=== PATIENT | male | born 1945 | race Caucasian/White ===

== ENCOUNTER 2018-10-25 19:35 | Inpatient (IN) | payer MEDICARE, BC ==
[~2018-10-25 19:35] MED LIST: ISOVUE-370 76%-LOCM 1 ML ONE
[2018-10-25 20:04] LABS: #Lymphocytes 1.2 thou/uL (1.20-3.40); #Monocytes 1.6 thou/uL (0.11-0.59); #Neutrophils 14.8 thou/uL (1.40-6.50); %Basophils 0.2 % (0.0-1.0); %Eosinophils 5.5 % (0.0-10.0); %Lymphocytes 6.3 % (21.0-51.0); %Monocytes 8.6 % (0.0-10.0); %Neutrophils 79.4 % (42.0-75.0); Hemoglobin 13.8 g/dL (14.0-18.0); Mean Corpuscular HGB CONC 32.6 g/dL (32.0-36.0); Mean Corpuscular Hemoglobin 29.2 pg (27.0-31.0); Mean Corpuscular Volume 89.5 fL (78.0-98.0); Platelet Count 235 thou/uL (130-400); RBC Distribution Width 11.8 % (11.5-14.5); Red Blood Cell (RBC) Count 4.71 mill/uL (4.70-6.10); White Blood Cell (WBC) Count 18.6 thou/uL (4.8-10.8)
--- NOTE | 2018-10-25 20:13 | RAD ---
AP VIEW CHEST: 10/25/18 HISTORY: Dyspnea. AP view chest is obtained on 10/25/18. There is elevation of the right hemidiaphragm. There is an ill-defined upper right hilar mass with distention into the right upper lobe. This may re present a right upper lobe malignancy. Correlation with CT chest would be of use. IMPRESSION: Volume loss in the right mid lung with spiculated right upper lobe mass. Malignancy cannot be exclud ed. POS: [facility]
[2018-10-25 20:28] LABS: ALT (SGPT) 36 U/L (8-55); AST (SGOT) 35 U/L (5-34); Albumin 4.2 g/dL (3.4-4.8); Alkaline Phosphatase 125 U/L (40-150); Anion Gap 15 mmol/L (10-20); BUN (Urea Nitrogen) 17 mg/dL (8.4-25.7); Bilirubin, Total 0.5 mg/dL (0.2-1.2); CK (CPK) 58 U/L (30-200); Calc. Creatinine Clearance 0 mL/min (70-130); Calcium 10.2 mg/dL (7.8-10.44); Carbon Dioxide 26 mmol/L (23-31); Chloride 100 mmol/L (98-107); Estimated GFR-MDRD 69; Globulin 3.5 g/dL (2.4-3.5); Glucose 117 mg/dL (83-110); Potassium 4.2 mmol/L (3.5-5.1); Protein, Total 7.7 g/dL (5.8-8.1); Sodium 137 mmol/L (136-145)
[2018-10-25] MEDS ORDERED: Sodium Chloride 0.9% 0 ML ONE (20:40)
[2018-10-25] MEDS ORDERED: cefTRIAXone\\ROCEPHIN 1 GM VIAL ONE (20:40)
[2018-10-25] MEDS ORDERED: Azithromycin 500 MG VIAL ONE (21:28)
[2018-10-25] MEDS ORDERED: Sodium Chloride 0.9% 100 ML ONE (21:28)
--- NOTE | 2018-10-25 22:24 | CT ---
CONTRAST ENHANCED CTA CHEST: 10/25/18 HISTORY: Shortness of breath for three weeks. Contrast enhanced CTA chest performed. 2D and 3D reconstructed images performed on an independent 3D workstation. Coronary artery calcifications seen. There is a 6.2 x 3.9 cm right upper lobe soft tissue mass abutting and compressing the superior vena cava. This may represent a right upper lobe malignancy versus area of consolidation in the right upp er lobe. There may also be some associated areas of right upper lobe pneumonia lateral to this mass. There is some mild paratracheal and right hilar lymphadenopathy seen. Areas of patchy air space opac ity also seen in the right middle lobe and right lower lobe. A small right sided pleural effusion is seen. There is also a spiculated small mass in the left upper lobe, axial image #51. Diameter measuri ng 8.5 mm. The inferior aspect of the right hepatic lobe contains an ill-defined hepatic parenchymal mass. Diame ter measuring approximately 3 cm unchanged since the previous CT of which notes this lesion on previo us CT from [facility] from three days earlier. IMPRESSION: Right upper lobe mass with paratracheal lymphadenopathy and right hilar lymphadenopathy. POS: [facility]
[2018-10-25] MEDS ORDERED: Morphine 4 MG/ML VIAL ONE (23:19)
[2018-10-25] MEDS ORDERED: Ondansetron PF 4 MG/2 ML Vial ONE (23:20)
[2018-10-25] MEDS ORDERED: Sodium Chloride 0.9% 1,000 ML IV SCH (23:45)
[2018-10-26] MEDS: Acetaminophen 325 MG TAB PO PRN (01:13)
--- NOTE | 2018-10-26 01:20 | HP ---
CHIEF COMPLAINT: Back pain. HISTORY OF PRESENT ILLNESS: The patient is a 72-year-old male with a 48 pack-year history of smoking, who reports that about 6 weeks ago, he started having some low back pain. The pain has progressed, he subsequently developed some constipation and some pelvic discomfort. He tried to treat that, that subsequently resolved and now he is actually having more loose stools. He lost his appetite and started having some coughing about a week ago. Cough started being productive of sputum that became pink and frothy. Also then developed some pain in the epigastric area. He went to [facility] and had x-rays of the abdomen and pelvis. At that time, they are thinking he may have had some diverticulitis, but they saw a calcified spot on his liver. He subsequently did follow up with Dr. Almodovar who is his PCP who then sent him for a CT scan of the abdomen and pelvis at the [facility] on . He had an abnormality noted on his liver and his lung, although he was not given any more detail than that at that time. He was told that he might want to consider coming here to the emergency department to be evaluated further. However, the patient felt like he could wait until followup. However, his pain has continued to increase and ultimately he had to present to the emergency department for some pain control of his low back pain. This pain has been somewhat positional. He indicates area is in the sacral area. He also reports some in the left posterior rib cage area. REVIEW OF SYSTEMS: The patient's voice has become significantly weaker. He has had 8-9 pounds weight loss over the past week. He has had no fevers or chills. He continues to have some loose stools. He reports some wheezing and shortness of breath over the last 4-5 days and as mentioned above, he has poor appetite. All other systems were reviewed and all pertinent positives and negatives noted in the history of present illness. PAST MEDICAL HISTORY: Notable for hypertension, peripheral vascular disease, coronary artery disease, hyperlipidemia. PAST SURGICAL HISTORY: Appendectomy, coronary stent x1, peripheral stents x3, one in the right leg, two in the left. FAMILY HISTORY: Father of lung cancer at the age of 63. His mother at 81 with COPD. SOCIAL HISTORY: The patient drinks about 3 beers per day. He smoked a pack a day for 48 years and quit about 10 years ago. He is . He is full code and his is his surrogate decision maker. ALLERGIES: NONE. CURRENT MEDICATIONS: 1. Crestor 20 mg daily. 2. Sertraline 150 mg daily. 3. Lisinopril 10 mg daily. 4. Atenolol 25 mg daily. 5. Aspirin 81 mg daily. 6. Vascepa 1 g b.i.d. 7. Fenofibrate 160 mg p.o. daily. PHYSICAL EXAMINATION: VITAL SIGNS: Blood pressure 160/86, pulse 73, respirations 20, temp 98.2, O2 saturations 96% on room air, although when I am in the room with the patient got him up out of the chair, his sats were down to 88%. GENERAL APPEARANCE: Age-appropriate male, he is in no distress. He is awake, alert, oriented, pleasant, and cooperative. HEENT: PERRL, no OP lesions. NECK: Supple and symmetric with no lymphadenopathy, JVD, or bruits. HEART: Regular rate and rhythm without murmurs, gallops, or rubs. LUNGS: Clear. He does have decreased breath sounds at the right base. He has no wheezes, rales presently. ABDOMEN: Soft, nontender, and nondistended. Positive bowel sounds. No masses. No organomegaly. EXTREMITIES: No cyanosis, clubbing, or edema. SKIN: Warm and dry. MUSCULOSKELETAL: Reveals no significant tenderness over the spine to palpation or percussion. He has slight tenderness in the left posterior ribcage area with no anatomic abnormalities noted. LABORATORY DATA: White count 18.6, hemoglobin 13.8, platelets are 225. D-dimer of greater than 20. Chemistries: Sodium 137, potassium 4.2, chloride 100, CO2 of 26, BUN 17, creatinine 1.06, glucose 117, calcium 10.2, AST 35, ALT 36. Troponin 0.013. Albumin is 4.2. IMAGING: Chest x-ray shows volume loss of the right mid lung with spiculated right upper lobe mass. CT of the chest shows a 6.2 x 3.9 cm right upper lobe soft tissue mass abutting and compressing the superior vena cava. Some area of upper lobe pneumonia lateral to the mass. Mild peritracheal and right hilar lymphadenopathy, small right-sided pleural effusion. Small spiculated mass in the left upper lobe and the inferior aspect of the right hepatic lobe contains an ill-defined hepatic parenchymal mass measuring 3 cm and unchanged from the previous CT done at the [facility] 3 days ago. IMPRESSION AND PLAN: Neoplasm of the right lung, highly suspicious for lung cancer with potential lymph node spread and possibly a metastatic mass in the left lung and liver. The patient also has pain in his sacrum, lumbar spine and left posterior rib cage areas. We will consult pulmonology for possible bronchoscopic biopsy. We will consult Oncology. We will obtain some x-rays of the sacrum and coccyx as well as a CT of the lumbar spine to evaluate for possible metastases. 1. Postobstructive pneumonia. Continue with the Rocephin and azithromycin started in the emergency department, p.r.n. nebs and oxygen. 2. Low back pain. Again, CT of the lumbar spine and images of the sacrum, to look for possible metastases. 3. History of coronary artery disease. Continue with the beta maribell and aspirin. 4. Hypertension, continue lisinopril. 5. Hyperlipidemia, continue Crestor. 6. Peripheral vascular disease, stable. 7. We will hold off on sequential compression devices for deep venous thrombosis prophylaxis given his peripheral vascular disease and we will hold off on anticoagulation in anticipation of potential endoscopy. Job ID: [id number]
[2018-10-26] MEDS: Morphine 4 MG/ML VIAL SLOW IVP PRN ×4 (04:40→20:08)
[2018-10-26 06:20] LABS: #Eosinphils 1.1 thou/uL (0.0-0.7); #Monocytes 1.5 thou/uL (0.11-0.59); #Neutrophils 11.4 thou/uL (1.40-6.50); %Basophils 0.3 % (0.0-1.0); %Eosinophils 7.2 % (0.0-10.0); %Lymphocytes 6.8 % (21.0-51.0); %Monocytes 9.9 % (0.0-10.0); %Neutrophils 75.9 % (42.0-75.0); Hemoglobin 12.2 g/dL (14.0-18.0); Mean Corpuscular HGB CONC 32.2 g/dL (32.0-36.0); Mean Corpuscular Hemoglobin 29.1 pg (27.0-31.0); Mean Corpuscular Volume 90.5 fL (78.0-98.0); Platelet Count 205 thou/uL (130-400); RBC Distribution Width 11.8 % (11.5-14.5); Red Blood Cell (RBC) Count 4.17 mill/uL (4.70-6.10)
[2018-10-26 06:43] LABS: Anion Gap 16 mmol/L (10-20); BUN (Urea Nitrogen) 18 mg/dL (8.4-25.7); Calc. Creatinine Clearance 95 mL/min (70-130); Carbon Dioxide 21 mmol/L (23-31); Chloride 104 mmol/L (98-107); Estimated GFR-MDRD 87; Glucose 94 mg/dL (83-110); Potassium 3.8 mmol/L (3.5-5.1); Sodium 137 mmol/L (136-145)
[2018-10-26] MEDS: Atenolol 25 MG TAB PO SCH (07:39)
[2018-10-26] MEDS: Fenofibrate Nanocrystallized 145 MG TAB PO SCH (07:39)
[2018-10-26] MEDS: Lisinopril 10 MG TAB PO SCH (07:40)
[2018-10-26] MEDS: Aspirin 81 mg Enteric Coated Tablet PO SCH (07:40)
[2018-10-26] MEDS ORDERED: Artificial Tears 18 DROP/0.9 ML EA EYE PRN (08:28)
[2018-10-26] MEDS ORDERED: Calcium Carbonate 500 MG ChewTAB PO PRN (08:28)
[2018-10-26] MEDS ORDERED: Ondansetron ODT 4 MG TAB SL PRN (08:28)
[2018-10-26] MEDS ORDERED: Loperamide HCl 2 MG CAP PO PRN (08:28)
[2018-10-26] MEDS ORDERED: Loratadine 10 MG TAB PO PRN (08:28)
[2018-10-26] MEDS ORDERED: Sodium Chloride 0.65% Nasal 44 ML BOT EA NARE PRN (08:28)
[2018-10-26] MEDS ORDERED: Cepastat Lozenges 1 LOZ PO PRN (08:28)
[2018-10-26] MEDS ORDERED: Senokot S 8.6-50 MG TAB PO PRN (08:28)
[2018-10-26] MEDS ORDERED: Ondansetron PF 4 MG/2 ML Vial IVP PRN (08:28)
[2018-10-26] MEDS ORDERED: Diabetic Tussin 200 MG/10 ML UDCUP PO PRN (08:28)
[2018-10-26] MEDS ORDERED: Nitroglycerin 0.4 MG TAB (25 Tab Bottle) SL PRN (08:28)
[2018-10-26] MEDS ORDERED: Eucerin (Mineral Oil/Petrolatum,White) 30 gm Jar TOP PRN (08:28)
[2018-10-26] MEDS ORDERED: Prevnar 13-Val Conj/PF 0.5 ML SYRINGE IM ONE (09:00)
--- NOTE | 2018-10-26 10:45 | PDOC.PN ---
- Subjective Encounter Start Date: 10/26/18 Encounter Start Time: 08:10 -: old records requested/rev Patient seen and examined. No new complaints. No overnight events has cough with sputum, has back pain - Objective Resuscitation Status - Order Detail: 10/25/18 23:44 Resuscitation Status Routine Resuscitation Status: FULL: Full Resuscitation MAR Reviewed: Yes Vital Signs & Weight: Vital Signs (12 hours) Temp Pulse Resp BP BP Pulse Ox 10/26/18 08:00 92 L 10/26/18 07:49 98.2 F 86 24 H 188/98 H 92 L 10/26/18 07:39 78 10/26/18 04:24 97.9 F 78 18 174/92 H 94 L 10/26/18 00:31 97.7 F 75 20 132/77 95 Weight Weight 189 lb 9.561 oz I&O: 10/25/18 10/26/18 10/27/18 06:59 06:59 06:59 Intake Total 1 Balance 1 Result Diagrams: 10/26/18 05:48 10/26/18 05:48 Radiology Reviewed by me: Yes Phys Exam - Physical Examination Constitutional: NAD HEENT: PERRLA, moist MMs, sclera anicteric Neck: no JVD, supple Respiratory: no rales few scattered rhonchi+ Cardiovascular: RRR, no significant murmur, no rub Gastrointestinal: soft, non-tender, no distention, positive bowel sounds Musculoskeletal: no edema, pulses present Neurological: non-focal, normal sensation, moves all 4 limbs Lymphatic: no nodes Psychiatric: normal affect, A&O x 3 Skin: no rash, normal turgor Dx/Plan (1) Mass of upper lobe of right lung Code(s): R91.8 - OTHER NONSPECIFIC ABNORMAL FINDING OF LUNG FIELD Status: Acute (2) Postobstructive pneumonia Code(s): J18.9 - PNEUMONIA, UNSPECIFIED ORGANISM Status: Acute (3) Anxiety and depression Code(s): F41.9 - ANXIETY DISORDER, UNSPECIFIED; F32.9 - MAJOR DEPRESSIVE DISORDER, SINGLE EPISODE, UNSPECIFIED Status: Chronic (4) CAD (coronary artery disease) Code(s): I25.10 - ATHSCL HEART DISEASE OF [place] CORONARY ARTERY W/O ANG PCTRS Status: Chronic (5) Dyslipidemia Code(s): E78.5 - HYPERLIPIDEMIA, UNSPECIFIED Status: Chronic (6) Hypertension Code(s): I10 - ESSENTIAL (PRIMARY) HYPERTENSION Status: Chronic (7) Low back pain Code(s): M54.5 - LOW BACK PAIN Status: Chronic (8) PAD (peripheral artery disease) Code(s): I73.9 - PERIPHERAL VASCULAR DISEASE, UNSPECIFIED Status: Chronic - Plan cont current plan of care, plan discussed w/ family, continue antibiotics * medication reviewed as below * symptomatic treatment * pulmonary consulted for tissue diagnosis * oncology consulted * will get CT abdomen and pelvis * continue IV rocephin and azithromycin. Review of Systems - Review of Systems Eyes: negative: Pain, Vision Change, Conjunctivae Inflammation, Eyelid Inflammation, Redness, Other ENT: negative: Ear Pain, Ear Discharge, Nose Pain, Nose Discharge, Nose Congestion, Mouth Pain, Mouth Swelling, Throat Pain, Throat Swelling, Other Respiratory: Cough, Sputum. negative: Dry, Shortness of Breath, Hemoptysis, SOB with Excertion, Pleuritic Pain, Wheezing Cardiovascular: negative: chest pain, palpitations, orthopnea, paroxysmal nocturnal dyspnea, edema, light headedness, other Gastrointestinal: negative: Nausea, Vomiting, Abdominal Pain, Diarrhea, Constipation, Melena, Hematochezia, Other Genitourinary: negative: Dysuria, Frequency, Incontinence, Hematuria, Retention , Other Musculoskeletal: Back Pain. negative: Neck Pain, Shoulder Pain, Arm Pain, Hand Pain, Leg Pain, Foot Pain, Other - Medications/Allergies Allergies/Adverse Reactions: Allergies Allergy/AdvReac Type Severity Reaction Status Date / Time No Known Allergies Allergy Unverified 10/26/18 00:42 Medications: Current Medications Acetaminophen (Tylenol) 650 mg PO Q4H PRN PRN Reason: Headache/Fever/Mild Pain (1-3) Last Admin: 10/26/18 01:13 Dose: 650 mg Hydrocodone Bitart/Acetaminophen ([place] 5/325) 1 tab PO Q4H PRN PRN Reason: Moderate Pain (4-6) Albuterol/Ipratropium (Duoneb) 3 ml NEB H4BY-AT PRN PRN Reason: SOB &/or Wheezing Artificial Tears (Tears Naturale) 2 drop EA EYE PRN PRN PRN Reason: Dry Eyes Aspirin (Ecotrin) 81 mg PO DAILY PRO Last Admin: 10/26/18 07:40 Dose: 81 mg Atenolol (Tenormin) 25 mg PO DAILY REPLACED BY [facility] Last Admin: 10/26/18 07:39 Dose: 25 mg Calcium Carbonate (Tums) 1,000 mg PO Q4H PRN PRN Reason: Heartburn or Indigestion Fenofibrate (Tricor) 145 mg PO DAILY REPLACED BY [facility] Last Admin: 10/26/18 07:39 Dose: 145 mg Guaifenesin (Robitussin Sf) 200 mg PO Q4H PRN PRN Reason: Cough Hydralazine HCl (Apresoline) 10 mg SLOW IVP Q4H PRN PRN Reason: SBP > 180 and HR < 70 Sodium Chloride (Normal Saline 0.9%) 1,000 mls @ 75 mls/hr IV .[id number] REPLACED BY [facility] Last Admin: 10/26/18 00:56 Dose: 1,000 mls Azithromycin 500 mg/ Sodium (Chloride) 250 mls @ 250 mls/hr IVPB Q24HR REPLACED BY [facility] Ceftriaxone Sodium 1 gm/ (Sodium Chloride) 100 mls @ 200 mls/hr IVPB Q24HR REPLACED BY [facility] Lisinopril (Zestril) 10 mg PO DAILY REPLACED BY [facility] Last Admin: 10/26/18 07:40 Dose: 10 mg Loperamide HCl (Imodium) 2 mg PO PRN PRN PRN Reason: Diarrhea/Loose Stools Loratadine (Claritin) 10 mg PO DAILYPRN PRN PRN Reason: Sinus Symptoms Mineral Oil/White Petrolatum (Eucerin Cream) 0 gm TOP BIDPRN PRN PRN Reason: Dry Skin Morphine Sulfate (Morphine) 2 mg SLOW IVP Q4H PRN PRN Reason: Moderate to Severe Pain (7-10) Last Admin: 10/26/18 08:44 Dose: 2 mg Nitroglycerin (Nitrostat) 0.4 mg SL Q5MIN PRN PRN Reason: Chest Pain Ondansetron HCl (Zofran Odt) 4 mg SL Q6H PRN PRN Reason: Nausea/Vomiting Ondansetron HCl (Zofran) 4 mg IVP Q6H PRN PRN Reason: Nausea/Vomiting Rosuvastatin Calcium (Crestor) 20 mg PO HS REPLACED BY [facility] Senna/Docusate Sodium (Senokot S) 2 tab PO BID PRN PRN Reason: Constipation Sertraline HCl (Zoloft) 150 mg PO DAILY REPLACED BY [facility] Last Admin: 10/26/18 07:39 Dose: 150 mg Sodium Chloride ([place] Nasal [place] 0.65%) 0 ml EA NARE QIDPRN PRN PRN Reason: Nasal Congestion Throat Lozenges (Cepastat Lozenges) 1 [place] PO Q2H PRN PRN Reason: Sore Throat Zolpidem Tartrate (Ambien) 5 mg PO HSPRN PRN PRN Reason: Insomnia
--- NOTE | 2018-10-26 12:01 | RAD ---
Sacrum/coccyx 2 views HISTORY: Sacral pain. FINDINGS: Sacral alae are intact. Sacrum is partially obscured by contrast material within the urinar y bladder. No acute osseous abnormalities are demonstrated. The sacrum is also seen on CT exam from the same date and shows no significant abnormalities.
--- NOTE | 2018-10-26 12:02 | CT ---
CT of the abdomen and pelvis with IV contrast INDICATION: History of lung neoplasm with low back pain rule out metastatic disease COMPARISON: CTA of the thorax dated October 25, [address] of the abdomen and pelvis dated October 22, 2018 FINDINGS: ABDOMEN: Lung bases: There is a small right pleural effusion again noted. There is mild right basilar atelecta sis. There are scattered pulmonary nodules within both lung bases suspicious for pulmonary metastatic disease. Liver: The hypodense mass within the right hepatic lobe is unchanged measuring 4.0 x 4.5 cm. No addit ional focal hepatic lesion is evident. Pancreas: Normal. Adrenal glands: Normal. Spleen: Normal. Kidneys: There is a 1.3 cm hypodense enhancing mass involving the superior pole of the left kidney on image 30 of series 2 and image 111 of coronal series. Bilateral renal cysts. Retroperitoneum of the upper abdomen: No lymphadenopathy or free fluid is identified. Pelvis: Small and large bowel: There are scattered diverticula involving the colon without evidence of active diverticulitis. The appendix is not definitely demonstrated. Reproductive structures: Prostate appears within normal limits. Free fluid: No free fluid is evident. Lymphadenopathy: No lymphadenopathy is evident. Vascular structures: There is moderate vascular consultation involving the abdominal pelvic vasculatu re. There is an endograft stent within the right external iliac artery. Osseous structures: There is a inferior endplate Schmorl's node involving L4 which is stable. No dest ructive osteolytic or osteoblastic lesion is identified. IMPRESSION: 1. Findings highly suspicious for pulmonary and hepatic metastatic disease. 2. Hypodense enhancing mass involving the superior pole left kidney suspicious for renal cell maligna ncy. MRI examination with and without contrast is recommended for further characterization. 3. Stable right pleural effusion 4. Colonic diverticulosis
[2018-10-26] MEDS ORDERED: ISOVUE-370 76%-LOCM 1 ML ONE (15:00)
[2018-10-26] MEDS ORDERED: predniSONE 20 MG TAB PO SCH (16:30)
[2018-10-26] MEDS: Rosuvastatin 20 MG TAB PO SCH (20:08)
--- NOTE | 2018-10-26 20:48 | CON ---
DATE OF CONSULTATION: REASON FOR CONSULT: Lung mass. HISTORY OF PRESENT ILLNESS: Mr. Dennis is a pleasant 72-year-old gentleman with a 70 pack-year history of smoking, who presented to the emergency room with low back pain. He had been seen by his primary care last week for back pain and shortness of breath. A CT scan done at a physician's center showed abnormalities in his liver and lung. He was planning on having outpatient workup. His pain increased, so he presented to the emergency room for evaluation. He had a CT angiogram of his chest and thorax, which showed a 6.2 x 3.9 cm right upper lobe mass abutting the superior vena cava. There was a small spiculated mass in the left upper lobe. He had a small right pleural effusion. He had right hilar and peritracheal lymphadenopathy. He underwent an abdominal and pelvis CT, which showed a 4.0 x 4.5 hyperdense mass in the right hepatic lobe. A 1.3 cm hyperdense mass involving the superior pole of the left kidney. The patient states he has had a 10-pound weight loss over the last 10 days. His symptoms began 6 weeks ago with cough, pain, and lack of appetite. He does complain of hoarseness and he has had several episodes of hemoptysis. He states he has had both constipation and most recently diarrhea. PAST MEDICAL HISTORY: 1. Hypertension. 2. Peripheral vascular disease. 3. Coronary artery disease. 4. Hyperlipidemia. 5. COPD. PAST SURGICAL HISTORY: 1. Appendectomy. 2. Cardiac stent. 3. Peripheral stents. ALLERGIES: NO KNOWN DRUG ALLERGIES. HOME MEDICATIONS: 1. Crestor 20 mg daily. 2. Sertraline 150 mg daily. 3. Lisinopril 10 mg daily. 4. Atenolol 25 daily. 5. Aspirin 81 mg daily. 6. Vascepa 1 g b.i.d. 7. Fenofibrate 160 mg daily. FAMILY HISTORY: Father from small cell lung cancer. SOCIAL HISTORY: He is . Pack and a half for almost 50 years, quit 10 years ago. Drinks 3 or 4 beers daily. REVIEW OF SYSTEMS: A 10-point review of systems is negative except for noted in HPI. PHYSICAL EXAMINATION: VITAL SIGNS: Temperature 97.9, pulse is 74, respiratory rate 22, and blood pressure is 158/88. He is 94% on 2 L. GENERAL: This is a well-developed, well-nourished male, in no acute distress. HEENT: Normocephalic and atraumatic. Pupils are equal and reactive to light. NECK: Supple with no mass. CV: Regular rate and rhythm. LUNGS: Diminished with expiratory wheezing and rhonchi in his upper airway. ABDOMEN: Soft and nontender. Bowel sounds are positive. EXTREMITIES: No clubbing, cyanosis, or edema. SKIN: No rash. HEMATOLOGIC: No petechiae or purpura. NEUROLOGIC: Nonfocal. PSYCH: The patient is alert and oriented. PERTINENT LABS AND X-RAYS: Current WBCs are 15, hemoglobin 12.2, hematocrit 37.7, and platelet count 205,000. He has 76% neutrophils and 7% lymphocytes. Sodium is 137, potassium is 3.8, chloride is 104, CO2 is 21, BUN is 18, creatinine is 0.87 , calcium is 9, total bilirubin is 0.5, AST is 35, ALT is 36, and alkaline phosphatase is 125. Troponin is negative. Serum total protein 7.7, albumin 4.2, and globulin 3.5. Radiology per HPI. ASSESSMENT: 1. Right upper lobe mass with likely liver metastatic disease. 2. A 1.3 left kidney lesion. DISCUSSION: Dr. Tolentino has seen the patient and is planning a bronchoscopy with tissue biopsy tomorrow. Further recommendations will be based on those results. If he has a small cell lung cancer, he will likely have chemotherapy on this hospitalization. He will likely need a PET scan at some point to characterize this left kidney lesion. Thank you for the consult. We will follow his hospital course. Job ID: [id number] [facility]
--- NOTE | 2018-10-26 22:20 | CON ---
DATE OF CONSULTATION: 10/26/2018 SERVICE: Pulmonary Medicine. REASON FOR CONSULT: Lung mass. HISTORY OF PRESENT ILLNESS: The patient is a 72-year-old white male with a past medical history significant for nothing. He was in his usual state of health until about 10 days ago. He started having increasing cough, little bit of hemoptysis , weight loss, aversion for food. Ultimately, he presented to the emergency department, because of the hemoptysis and increasing difficulty with breathing. He was discovered to have a lung mass and mediastinal lymphadenopathy. He denies any current fevers or chills. He has been having some night sweats, but that has not changed over the last 20 years. PAST MEDICAL HISTORY: 1. Hypertension. 2. Peripheral vascular disease. 3. Dyslipidemia. 4. Coronary artery disease. 5. COPD, not currently on medication. PAST SURGICAL HISTORY: 1. Appendectomy. 2. Percutaneous coronary intervention with stent placement x1. 3. Peripheral stent x3. FAMILY HISTORY: Noncontributory. SOCIAL HISTORY: He drinks 3 beers on a daily basis. He quit smoking about 10 years ago, but prior to that, he had nearly a 50-pack year history of smoking. 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 ALLERGIES: NO KNOWN DRUG ALLERGIES. MEDICATIONS: List of his inpatient medications was reviewed. Multiple updates were made at this time including initiation of steroids, antibiotics and nebulized medications. REVIEW OF SYSTEMS: General, head, ears, eyes, nose, throat, cardiovascular, respiratory, GI, , musculoskeletal, neurologic, and skin is negative except as mentioned in the HPI. PHYSICAL EXAMINATION: VITAL SIGNS: Afebrile, pulse 74, blood pressure 158/88, respirations 22, saturation 94% on 2 L nasal cannula. GENERAL: The patient is awake and alert, in no apparent distress. LUNG: Reduced air entry with a prolonged expiratory phase and expiratory wheezing present. HEART: Normal rate regular. ABDOMEN: Soft, nontender, and nondistended. Bowel sounds are positive. MUSCULOSKELETAL: No cyanosis or clubbing. No pitting in the bilateral lower extremities. NEUROLOGIC: Grossly nonfocal. LABORATORY DATA: WBC 15.0, hemoglobin 12.2, platelets 205,000. D-dimer is greater than 20. Basic metabolic profile and liver function studies are unremarkable otherwise. Troponin is negative x1. IMAGIN. Sacrum and coccyx x-ray demonstrates no acute abnormalities. 2. His CT of the abdomen and pelvis demonstrates findings highly suspicious for pulmonary and hepatic metastatic processes. Hypodense enhancing mass involves the superior pole of the left kidney, suspicious for primary kidney lesion. Right pleural effusion is present. 3. His CTA of the chest demonstrates pulmonary mass, and mediastinal lymphadenopathy. ASSESSMENT: 1. Pulmonary mass. 2. Mediastinal lymphadenopathy. 3. Chronic obstructive pulmonary disease with acute exacerbation. 4. Obstructive sleep apnea, not able to tolerate CPAP therapy. DISCUSSION AND PLAN: I have talked about different sampling procedures that could be offered. Ultimately, he thought it would be reasonable to pursue a mediastinal lymph node biopsy, and right upper lobe biopsy, if necessary. I will set the procedure up for tomorrow morning. We will make him n.p.o. before midnight. Treatment for COPD exacerbation will be initiated by giving him steroids, antibiotics and nebulized medications. He has a known history of obstructive sleep apnea. He is going to discuss with his whether or not he wants to pursue additional investigation. 70 minutes have been devoted to this patient in various activities. I personally reviewed all imaging studies and laboratory data noted within this document. For fifty percent of this time, I was interacting with the patient at the bedside or coordinating care with the care team. For the remainder of the time I was immediately available to the patient in the hospital unit. Job ID: [id number] [id number]
[2018-10-26] MEDS: cefTRIAXone\\ROCEPHIN 1 GM in Sodium Chloride 0.9% 100 ML IVPB SCH (22:34)
[2018-10-26] MEDS: Azithromycin 500 MG in Sodium Chloride 0.9% 250 ML 250 ML IVPB SCH (23:32)
[2018-10-27] MEDS: Morphine 4 MG/ML VIAL SLOW IVP PRN ×4 (01:04→22:05)
[2018-10-27] MEDS: Atenolol 25 MG TAB PO SCH (06:11)
[2018-10-27] MEDS ORDERED: PROPOFOL 0 ML ONE (07:52)
[2018-10-27] MEDS ORDERED: Fentanyl 100 MCG/2 ML VIAL ONE (07:52)
[2018-10-27] MEDS ORDERED: Midazolam HCl 2 mg/2 ml Vial ONE (08:25)
[2018-10-27] MEDS ORDERED: Albuterol Sulfate HFA (OR ONLY) ONE (08:31)
[2018-10-27 08:45] LABS: #Eosinphils 0.1 thou/uL (0.0-0.7); #Lymphocytes 0.7 thou/uL (1.20-3.40); #Monocytes 1.1 thou/uL (0.11-0.59); #Neutrophils 13.5 thou/uL (1.40-6.50); %Eosinophils 0.3 % (0.0-10.0); %Lymphocytes 4.4 % (21.0-51.0); %Monocytes 7.4 % (0.0-10.0); %Neutrophils 87.9 % (42.0-75.0); Hemoglobin 12.1 g/dL (14.0-18.0); Mean Corpuscular HGB CONC 31.4 g/dL (32.0-36.0); Mean Corpuscular Hemoglobin 28.1 pg (27.0-31.0); Mean Corpuscular Volume 89.6 fL (78.0-98.0); Mean Platelet Volume 7.2 fL (7.4-10.4); Platelet Count 244 thou/uL (130-400); RBC Distribution Width 11.8 % (11.5-14.5); Red Blood Cell (RBC) Count 4.29 mill/uL (4.70-6.10); White Blood Cell (WBC) Count 15.4 thou/uL (4.8-10.8)
[2018-10-27] MEDS: Aspirin 81 mg Enteric Coated Tablet PO SCH (08:45)
[2018-10-27] MEDS ORDERED: EPINEPHrine 1 MG/10 ML Abboject SYRINGE ONE (08:51)
[2018-10-27 09:10] LABS: ALT (SGPT) 26 U/L (8-55); AST (SGOT) 24 U/L (5-34); Albumin 3.5 g/dL (3.4-4.8); Alkaline Phosphatase 106 U/L (40-150); Anion Gap 19 mmol/L (10-20); BUN (Urea Nitrogen) 20 mg/dL (8.4-25.7); Bilirubin, Total 0.3 mg/dL (0.2-1.2); Calc. Creatinine Clearance 96 mL/min (70-130); Calcium 8.9 mg/dL (7.8-10.44); Carbon Dioxide 19 mmol/L (23-31); Chloride 102 mmol/L (98-107); Estimated GFR-MDRD 89; Glucose 125 mg/dL (83-110); Protein, Total 6.5 g/dL (5.8-8.1); Sodium 136 mmol/L (136-145)
[2018-10-27 11:29] LABS: BF Color Colorless; Body Fluid Source Bronchial Washings; Clarity Hazy (Clear); Tube # EDTA
[2018-10-27 11:30] LABS: BF RBC Count - Manual 535 /cumm; BF WBC/Nonhematics Ct. - Manua 173 /cumm
[2018-10-27] MEDS: predniSONE 20 MG TAB PO SCH (12:15)
[2018-10-27] MEDS: Lisinopril 10 MG TAB PO SCH (12:16)
[2018-10-27] MEDS: Fenofibrate Nanocrystallized 145 MG TAB PO SCH (12:16)
[2018-10-27] MEDS: HYDROcodone/Acetaminophen 5/325 mg Tablet PO PRN ×2 (12:20→19:44)
[2018-10-27 13:11] LABS: BF Segmented Neutrophils 20 %; Cell Count Non Hematic 80 %
--- NOTE | 2018-10-27 13:33 | PDOC.PN ---
- Subjective Encounter Start Date: 10/27/18 Encounter Start Time: 09:00 Patient seen and examined. No new complaints. No overnight events - Objective Resuscitation Status - Order Detail: 10/25/18 23:44 Resuscitation Status Routine Resuscitation Status: FULL: Full Resuscitation MAR Reviewed: Yes Vital Signs & Weight: Vital Signs (12 hours) Temp Pulse Resp BP Pulse Ox 10/27/18 13:26 81 18 94 L 10/27/18 11:42 98.3 F 80 18 93 L 10/27/18 07:26 98.9 F 80 20 135/73 93 L 10/27/18 06:56 76 18 92 L 10/27/18 06:11 89 10/27/18 04:00 98.2 F 79 16 133/69 93 L 10/27/18 02:00 124/68 Weight Weight 189 lb 9.561 oz I&O: 10/26/18 10/27/18 10/28/18 06:59 06:59 06:59 Intake Total 1 690 Balance 1 690 Result Diagrams: 10/27/18 06:26 10/27/18 06:26 Phys Exam - Physical Examination Constitutional: NAD HEENT: PERRLA, moist MMs, sclera anicteric Neck: no JVD, supple Respiratory: no wheezing, no rales, no rhonchi Cardiovascular: RRR, no significant murmur, no rub Gastrointestinal: soft, non-tender, no distention, positive bowel sounds Musculoskeletal: no edema, pulses present Neurological: non-focal, normal sensation Lymphatic: no nodes Psychiatric: normal affect, A&O x 3 Skin: no rash, normal turgor Dx/Plan (1) Mass of upper lobe of right lung Code(s): R91.8 - OTHER NONSPECIFIC ABNORMAL FINDING OF LUNG FIELD Status: Acute (2) Postobstructive pneumonia Code(s): J18.9 - PNEUMONIA, UNSPECIFIED ORGANISM Status: Acute (3) Anxiety and depression Code(s): F41.9 - ANXIETY DISORDER, UNSPECIFIED; F32.9 - MAJOR DEPRESSIVE DISORDER, SINGLE EPISODE, UNSPECIFIED Status: Chronic (4) CAD (coronary artery disease) Code(s): I25.10 - ATHSCL HEART DISEASE OF [place] CORONARY ARTERY W/O ANG PCTRS Status: Chronic (5) Dyslipidemia Code(s): E78.5 - HYPERLIPIDEMIA, UNSPECIFIED Status: Chronic (6) Hypertension Code(s): I10 - ESSENTIAL (PRIMARY) HYPERTENSION Status: Chronic (7) Low back pain Code(s): M54.5 - LOW BACK PAIN Status: Chronic (8) PAD (peripheral artery disease) Code(s): I73.9 - PERIPHERAL VASCULAR DISEASE, UNSPECIFIED Status: Chronic - Plan cont current plan of care, continue antibiotics * today bronchoscopy * continue IV antibiotics * follow pathology * oncology and pulmonary recommendation appreciated * medication reviewed as below * symptomatic treatment. Review of Systems - Review of Systems ENT: negative: Ear Pain, Ear Discharge, Nose Pain, Nose Discharge, Nose Congestion, Mouth Pain, Mouth Swelling, Throat Pain, Throat Swelling, Other Respiratory: negative: Cough, Dry, Shortness of Breath, Hemoptysis, SOB with Excertion, Pleuritic Pain, Sputum, Wheezing Cardiovascular: negative: chest pain, palpitations, orthopnea, paroxysmal nocturnal dyspnea, edema, light headedness, other Gastrointestinal: negative: Nausea, Vomiting, Abdominal Pain, Diarrhea, Constipation, Melena, Hematochezia, Other Genitourinary: negative: Dysuria, Frequency, Incontinence, Hematuria, Retention , Other Musculoskeletal: negative: Neck Pain, Shoulder Pain, Arm Pain, Back Pain, Hand Pain, Leg Pain, Foot Pain, Other - Medications/Allergies Allergies/Adverse Reactions: Allergies Allergy/AdvReac Type Severity Reaction Status Date / Time No Known Allergies Allergy Unverified 10/26/18 00:42 Medications: Current Medications Acetaminophen (Tylenol) 650 mg PO Q4H PRN PRN Reason: Headache/Fever/Mild Pain (1-3) Last Admin: 10/26/18 01:13 Dose: 650 mg Hydrocodone Bitart/Acetaminophen ([place] 5/325) 1 tab PO Q4H PRN PRN Reason: Moderate Pain (4-6) Last Admin: 10/27/18 12:20 Dose: 1 tab Albuterol/Ipratropium (Duoneb) 3 ml NEB [id number] PRN PRN Reason: SOB &/or Wheezing Albuterol/Ipratropium (Duoneb) 3 ml NEB [id number] PRO Last Admin: 10/27/18 13:26 Dose: 3 ml Artificial Tears (Tears Naturale) 2 drop EA EYE PRN PRN PRN Reason: Dry Eyes Aspirin (Ecotrin) 81 mg PO DAILY [facility] Last Admin: 10/27/18 08:45 Dose: Not Given Atenolol (Tenormin) 25 mg PO DAILY [facility] Last Admin: 10/27/18 06:11 Dose: 25 mg Calcium Carbonate (Tums) 1,000 mg PO Q4H PRN PRN Reason: Heartburn or Indigestion Fenofibrate (Tricor) 145 mg PO DAILY [facility] Last Admin: 10/27/18 12:16 Dose: 145 mg Guaifenesin (Robitussin Sf) 200 mg PO Q4H PRN PRN Reason: Cough Hydralazine HCl (Apresoline) 10 mg SLOW IVP Q4H PRN PRN Reason: SBP > 180 and HR < 70 Azithromycin 500 mg/ Sodium (Chloride) 250 mls @ 250 mls/hr IVPB Q24HR [facility] Last Admin: 10/26/18 23:32 Dose: 250 mls Ceftriaxone Sodium 1 gm/ (Sodium Chloride) 100 mls @ 200 mls/hr IVPB Q24HR [facility] Last Admin: 10/26/18 22:34 Dose: 100 mls Lisinopril (Zestril) 10 mg PO DAILY [facility] Last Admin: 10/27/18 12:16 Dose: 10 mg Loperamide HCl (Imodium) 2 mg PO PRN PRN PRN Reason: Diarrhea/Loose Stools Loratadine (Claritin) 10 mg PO DAILYPRN PRN PRN Reason: Sinus Symptoms Mineral Oil/White Petrolatum (Eucerin Cream) 0 gm TOP BIDPRN PRN PRN Reason: Dry Skin Morphine Sulfate (Morphine) 2 mg SLOW IVP Q4H PRN PRN Reason: Moderate to Severe Pain (7-10) Last Admin: 10/27/18 06:27 Dose: 2 mg Nitroglycerin (Nitrostat) 0.4 mg SL Q5MIN PRN PRN Reason: Chest Pain Ondansetron HCl (Zofran Odt) 4 mg SL Q6H PRN PRN Reason: Nausea/Vomiting Ondansetron HCl (Zofran) 4 mg IVP Q6H PRN PRN Reason: Nausea/Vomiting Prednisone (Prednisone) 40 mg PO QAM-[facility] Last Admin: 10/27/18 12:15 Dose: 40 mg Rosuvastatin Calcium (Crestor) 20 mg PO HS [facility] Last Admin: 10/26/18 20:08 Dose: 20 mg Senna/Docusate Sodium (Senokot S) 2 tab PO BID PRN PRN Reason: Constipation Sertraline HCl (Zoloft) 150 mg PO DAILY [facility] Last Admin: 10/27/18 12:15 Dose: 150 mg Sodium Chloride ([place] Nasal [place] 0.65%) 0 ml EA NARE QIDPRN PRN PRN Reason: Nasal Congestion Throat Lozenges (Cepastat Lozenges) 1 [place] PO Q2H PRN PRN Reason: Sore Throat Zolpidem Tartrate (Ambien) 5 mg PO HSPRN PRN PRN Reason: Insomnia
--- NOTE | 2018-10-27 16:29 | PRG ---
DATE OF SERVICE: 10/27/2018 SERVICE: Pulmonary Medicine. INTERVAL HISTORY: The patient is doing really well from respiratory standpoint. Breathing comfortably. He has no complaints of chest pain, fevers, or chills. He is actually wheezing quite a bit less, and no longer has labored respirations. PHYSICAL EXAMINATION: VITAL SIGNS: Afebrile. Pulse 73, blood pressure 117/72, respirations 16, saturation 94% on room air. GENERAL: The patient is awake and alert, in no apparent distress. LUNGS: Excellent air entry. There is a prolonged expiratory phase, but the polyphonic wheezing is much improved. He is moving much better air today. HEART: Normal rate and regular. ABDOMEN: Soft, nontender, nondistended. Bowel sounds are positive. MUSCULOSKELETAL: No cyanosis or clubbing. There is no pitting in the bilateral lower extremities. NEUROLOGIC: Grossly nonfocal. LABORATORY DATA: WBC 15.4, hemoglobin 12.1, platelets 244,000. Neutrophil count is up-trending, likely reflecting the steroids I gave him. Basic metabolic profile and liver function studies are otherwise unremarkable/stable. ASSESSMENT: 1. Pulmonary mass. 2. Mediastinal lymphadenopathy. 3. Chronic obstructive pulmonary disease with acute exacerbation. DISCUSSION AND PLAN: I will continue antibiotics, nebulized medications, and steroids directed at pneumonia/COPD exacerbation. We will proceed with our bronchoscopy, and endoscopic bronchial ultrasound. Hopefully, we will be able to get an answer with this sampling modality. If pathology is negative at 48 hours, we may need to consider doing a liver biopsy. Pulmonary will continue to follow. Job ID: [id number]
[2018-10-27] MEDS: Rosuvastatin 20 MG TAB PO SCH (19:45)
[2018-10-27] MEDS: cefTRIAXone\\ROCEPHIN 1 GM in Sodium Chloride 0.9% 100 ML IVPB SCH (22:02)
[2018-10-27] MEDS: Azithromycin 500 MG in Sodium Chloride 0.9% 250 ML 250 ML IVPB SCH (22:11)
--- NOTE | 2018-10-27 23:13 | OP ---
DATE OF PROCEDURE: 10/27/2018 PROCEDURE PERFORMED: Fiberoptic bronchoscopy with, 1. Visual airway inspection. 2. Endobronchial brush of the right upper lobe. 3. Bronchoalveolar lavage of the right upper lobe. 4. Transbronchial biopsies of the right upper lobe. 5. Endoscopic bronchial ultrasound guided transbronchial needle aspiration of R10. PREPROCEDURE DIAGNOSES: 1. Pulmonary mass. 2. Mediastinal lymphadenopathy. POSTPROCEDURE DIAGNOSES: 1. Pulmonary mass. 2. Mediastinal lymphadenopathy. MEDICATIONS: For list of medications, please refer Anesthesia documentation. PREANESTHESIA ASSESSMENT: H and P had been performed. The patient's medications and allergies were reviewed. Informed consent was obtained after discussing risks, benefits, and rationale for performing the procedure as well as alternative options. DESCRIPTION OF PROCEDURE: A time-out was performed, identifying the correct procedure and patient with name and date of . Diagnostic fiberoptic bronchoscope was introduced through the existing 8.5 endotracheal tube. The bronchoscope was advanced into the trachea, where tracheobronchial tree inspection was carried out. I could clearly identify the right upper lobe, right middle lobe, right lower lobe, left upper lobe, lingula, and left lower lobe. Anatomy was normal to the segmental level. Secretions were fairly heavy coming from the right upper lobe. They had a slight purulence to them, were thick and tenacious and had gigi color. Endobronchial brushing was obtained under fluoroscopy. Bronchoalveolar lavage was subsequently performed in the right upper lobe. Endobronchial biopsies were also obtained under fluoroscopic guidance. Hemostasis was verified and the bronchoscope was removed from the patient. Postprocedure fluoroscopy did not demonstrate a pneumothorax. The bronchoscope was then exchanged for a curvilinear endoscopic bronchial ultrasound Olympus bronchoscope. A piotr survey was performed. [place]ty mediastinal lymphadenopathy was identified at the R3 level and R10 level. The lymph nodes were small, and had a benign appearance to them. Multiple passes were made at lymph nodes at the R10 position. There was no significant post biopsy bleeding. The bronchoscope was subsequently removed from the patient and the procedure was terminated. FINDINGS: 1. No endobronchial disease was identified. 2. Secretions were heavy, tenacious, and cloudy gigi color coming from the right upper lobe. 3. Marianela appeared sharp. 4. Rapid on-site pathology demonstrated lymphocytes. Pass 1 of 3 without malignancy. COMPLICATIONS: None. ESTIMATED BLOOD LOSS: 2 mL. FLUOROSCOPY TIME: Less than 2 minutes. DISPOSITION: The patient will be transitioned back to his inpatient room once he meets criteria in the postanesthesia care unit. Job ID: [id number] MTDD
[2018-10-28] MEDS: Morphine 4 MG/ML VIAL SLOW IVP PRN ×3 (05:21→15:47)
[2018-10-28] MEDS: Aspirin 81 mg Enteric Coated Tablet PO SCH (07:45)
[2018-10-28] MEDS: Atenolol 25 MG TAB PO SCH (07:45)
[2018-10-28] MEDS: Lisinopril 10 MG TAB PO SCH (07:45)
[2018-10-28] MEDS: predniSONE 20 MG TAB PO SCH (07:46)
[2018-10-28] MEDS: HYDROcodone/Acetaminophen 5/325 mg Tablet PO PRN ×2 (07:47→22:53)
[2018-10-28] MEDS: Fenofibrate Nanocrystallized 145 MG TAB PO SCH (07:47)
--- NOTE | 2018-10-28 12:06 | PRG ---
DATE OF SERVICE: 10/28/2018 SERVICE: Pulmonary Medicine. INTERVAL HISTORY: The patient is doing really well from respiratory standpoint. Overnight, he slept pretty well, but woke up, wheezing a little bit more this morning. Denies any current fevers or chills. There were no overnight events. PHYSICAL EXAMINATION: VITAL SIGNS: Afebrile, pulse 81, blood pressure 153/92, respirations 22, and saturation 98% on 6 L nasal cannula. GENERAL: The patient is awake and alert, in no apparent distress. LUNGS: Decent air entry with a prolonged expiratory phase. The wheezing is back. HEART: Normal rate and regular. ABDOMEN: Soft, nontender, and nondistended. Bowel sounds are positive. MUSCULOSKELETAL: No cyanosis or clubbing. No pitting in the bilateral lower extremities. NEUROLOGIC: Grossly nonfocal. LABORATORY DATA: WBC 15.4, hemoglobin 12.1, platelets 244,000. Basic metabolic profile and liver function studies are otherwise unremarkable with a bicarb that is gently downtrending. Bronchial washings are positive for many red blood cells, fewer white blood cells, only 20% neutrophils with 80% nonhematologic cells. Respiratory cultures are currently negative, though there are moderate white blood cells identified and no organisms seen. ASSESSMENT: 1. Pulmonary mass. 2. Acute hypoxic respiratory failure. 3. Chronic obstructive pulmonary disease with acute exacerbation. 4. Mediastinal lymphadenopathy. DISCUSSION AND PLAN: Rapid on-site pathology showed no malignant cells in the lymph node. Lymphocytes were identified, so we clearly had lymphoid tissue. The pulmonary mass was completely blind biopsy. We are awaiting the pathology results. If these are negative, we will need to pursue sampling procedure of the liver or other location as directed by Oncology. I am available for thoracentesis, but the yield on this will be fairly low. Job ID: [id number]
--- NOTE | 2018-10-28 12:07 | PQF ---
ELEANOR GASTELUM SALIM NOORJIBHAI MD [id number] CLINICAL DOCUMENTATION IMPROVEMENT CLARIFICATION FORM: ICD-10 Updated PLEASE DO AN ADDENDUM TO THE PROGRESS NOTE WITH ANY DOCUMENTATION UPDATES OR ADDITIONS AND CARRY THROUGH TO DC SUMMARY. THANK YOU. DATE: 10/28/18 ATTN: Dr. Newell Please exercise your independent, professional judgment in responding to the clarification form. Clinical indicators are provided on the bottom of this form for your review Please check appropriate box(s): [ ] Acute Respiratory Failure with Hypoxia due to COPD [ x] Acute Respiratory Failure with hypoxia due to: (etiology) _lung mass and pneumonia [ ] Hypoxia [ ] Other diagnosis [ ] Unable to determine In addition, please specify: Present on Admission (POA): [ x ] Yes [ ] No [ ] Unable to determine For continuity of documentation, please document condition throughout progress notes and discharge summary. Thank You. 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 All Rights Reserved She Haque RN, BSN, CCDS [email or web address]
[2018-10-28] MEDS ORDERED: Furosemide 40 MG/4 ML VIAL ONE (12:59)
[2018-10-28] MEDS ORDERED: methylPREDNISolone Sod Succ 40 MG VIAL IVP SCH (13:15)
[2018-10-28] MEDS ORDERED: Furosemide 40 MG/4 ML VIAL SLOW IVP SCH (13:15)
--- NOTE | 2018-10-28 14:33 | PDOC.PN ---
- Subjective Encounter Start Date: 10/28/18 Encounter Start Time: 09:45 today pt is not feeling good, he has more dyspnea, he has congestion, no fever - Objective Resuscitation Status - Order Detail: 10/25/18 23:44 Resuscitation Status Routine Resuscitation Status: FULL: Full Resuscitation MAR Reviewed: Yes Vital Signs & Weight: Vital Signs (12 hours) Temp Pulse Resp BP Pulse Ox 10/28/18 14:23 76 20 96 10/28/18 11:59 20 93 L 10/28/18 11:53 98.8 F 78 20 173/82 H 10/28/18 11:18 78 20 98 10/28/18 08:00 98 F 81 22 H 92 L 10/28/18 07:45 75 10/28/18 05:40 75 18 90 L 10/28/18 04:00 98 F 72 20 153/92 H 94 L Weight Weight 189 lb 9.561 oz I&O: 10/27/18 10/28/18 10/29/18 06:59 06:59 06:59 Intake Total 690 850 Balance 690 850 Result Diagrams: 10/27/18 06:26 10/27/18 06:26 Phys Exam - Physical Examination Constitutional: NAD HEENT: PERRLA, moist MMs, sclera anicteric Neck: no JVD, supple Respiratory: wheezing present few scattered rales+ Cardiovascular: RRR, no significant murmur, no rub Gastrointestinal: soft, non-tender, no distention, positive bowel sounds Musculoskeletal: no edema, pulses present Neurological: non-focal, normal sensation, moves all 4 limbs Lymphatic: no nodes Psychiatric: normal affect, A&O x 3 Skin: no rash, normal turgor Dx/Plan (1) Mass of upper lobe of right lung Code(s): R91.8 - OTHER NONSPECIFIC ABNORMAL FINDING OF LUNG FIELD Status: Acute (2) Postobstructive pneumonia Code(s): J18.9 - PNEUMONIA, UNSPECIFIED ORGANISM Status: Acute (3) Anxiety and depression Code(s): F41.9 - ANXIETY DISORDER, UNSPECIFIED; F32.9 - MAJOR DEPRESSIVE DISORDER, SINGLE EPISODE, UNSPECIFIED Status: Chronic (4) CAD (coronary artery disease) Code(s): I25.10 - ATHSCL HEART DISEASE OF [place] CORONARY ARTERY W/O ANG PCTRS Status: Chronic (5) Dyslipidemia Code(s): E78.5 - HYPERLIPIDEMIA, UNSPECIFIED Status: Chronic (6) Hypertension Code(s): I10 - ESSENTIAL (PRIMARY) HYPERTENSION Status: Chronic (7) Low back pain Code(s): M54.5 - LOW BACK PAIN Status: Chronic (8) PAD (peripheral artery disease) Code(s): I73.9 - PERIPHERAL VASCULAR DISEASE, UNSPECIFIED Status: Chronic (9) Acute urinary retention Code(s): R33.8 - OTHER RETENTION OF URINE Status: Acute (10) Acute respiratory failure with hypoxemia Code(s): J96.01 - ACUTE RESPIRATORY FAILURE WITH HYPOXIA Status: Acute (11) Liver metastases Code(s): C78.7 - SECONDARY MALIG NEOPLASM OF LIVER AND INTRAHEPATIC BILE DUCT Status: Acute - Plan cont current plan of care, continue antibiotics, respiratory therapy * will give dose of lasix * will give dose of solumedrol * continue respiratory therapy * continue empiric antibiotics * medication reviewed as below * symptomatic treatment * follow pathology report * may need liver biopsy if result is negative * will place davison for urinary retention * consult urology. Review of Systems - Review of Systems Eyes: negative: Pain, Vision Change, Conjunctivae Inflammation, Eyelid Inflammation, Redness, Other ENT: negative: Ear Pain, Ear Discharge, Nose Pain, Nose Discharge, Nose Congestion, Mouth Pain, Mouth Swelling, Throat Pain, Throat Swelling, Other Respiratory: Cough, Shortness of Breath, Sputum. negative: Dry, Hemoptysis, SOB with Excertion, Pleuritic Pain, Wheezing Cardiovascular: negative: chest pain, palpitations, orthopnea, paroxysmal nocturnal dyspnea, edema, light headedness, other Gastrointestinal: negative: Nausea, Vomiting, Abdominal Pain, Diarrhea, Constipation, Melena, Hematochezia, Other Genitourinary: Retention. negative: Dysuria, Frequency, Incontinence, Hematuria , Other Musculoskeletal: negative: Neck Pain, Shoulder Pain, Arm Pain, Back Pain, Hand Pain, Leg Pain, Foot Pain, Other - Medications/Allergies Allergies/Adverse Reactions: Allergies Allergy/AdvReac Type Severity Reaction Status Date / Time No Known Allergies Allergy Unverified 10/26/18 00:42 Medications: Current Medications Acetaminophen (Tylenol) 650 mg PO Q4H PRN PRN Reason: Headache/Fever/Mild Pain (1-3) Last Admin: 10/26/18 01:13 Dose: 650 mg Hydrocodone Bitart/Acetaminophen ([place] 5/325) 1 tab PO Q4H PRN PRN Reason: Moderate Pain (4-6) Last Admin: 10/28/18 07:47 Dose: 1 tab Albuterol/Ipratropium (Duoneb) 3 ml NEB [id number] PRN PRN Reason: SOB &/or Wheezing Albuterol/Ipratropium (Duoneb) 3 ml NEB [id number] [facility] Last Admin: 10/28/18 14:23 Dose: 3 ml Artificial Tears (Tears Naturale) 2 drop EA EYE PRN PRN PRN Reason: Dry Eyes Aspirin (Ecotrin) 81 mg PO DAILY [facility] Last Admin: 10/28/18 07:45 Dose: 81 mg Atenolol (Tenormin) 25 mg PO DAILY [facility] Last Admin: 10/28/18 07:45 Dose: 25 mg Calcium Carbonate (Tums) 1,000 mg PO Q4H PRN PRN Reason: Heartburn or Indigestion Fenofibrate (Tricor) 145 mg PO DAILY [facility] Last Admin: 10/28/18 07:47 Dose: 145 mg Furosemide (Lasix) 40 mg SLOW IVP NOW [facility] Stop: 10/28/18 15:00 Last Admin: 10/28/18 13:46 Dose: 40 mg Guaifenesin (Robitussin Sf) 200 mg PO Q4H PRN PRN Reason: Cough Hydralazine HCl (Apresoline) 10 mg SLOW IVP Q4H PRN PRN Reason: SBP > 180 and HR < 70 Azithromycin 500 mg/ Sodium (Chloride) 250 mls @ 250 mls/hr IVPB Q24HR [facility] Last Admin: 10/27/18 22:11 Dose: 250 mls Ceftriaxone Sodium 1 gm/ (Sodium Chloride) 100 mls @ 200 mls/hr IVPB Q24HR [facility] Last Admin: 10/27/18 22:02 Dose: 100 mls Lisinopril (Zestril) 10 mg PO DAILY [facility] Last Admin: 10/28/18 07:45 Dose: 10 mg Loperamide HCl (Imodium) 2 mg PO PRN PRN PRN Reason: Diarrhea/Loose Stools Loratadine (Claritin) 10 mg PO DAILYPRN PRN PRN Reason: Sinus Symptoms Methylprednisolone Sodium Succinate (Solu-Medrol) 40 mg IVP NOW [facility] Stop: 10/28/18 15:00 Last Admin: 10/28/18 13:46 Dose: 40 mg Mineral Oil/White Petrolatum (Eucerin Cream) 0 gm TOP BIDPRN PRN PRN Reason: Dry Skin Morphine Sulfate (Morphine) 2 mg SLOW IVP Q4H PRN PRN Reason: Moderate to Severe Pain (7-10) Last Admin: 10/28/18 11:52 Dose: 2 mg Nitroglycerin (Nitrostat) 0.4 mg SL Q5MIN PRN PRN Reason: Chest Pain Ondansetron HCl (Zofran Odt) 4 mg SL Q6H PRN PRN Reason: Nausea/Vomiting Ondansetron HCl (Zofran) 4 mg IVP Q6H PRN PRN Reason: Nausea/Vomiting Prednisone (Prednisone) 40 mg PO QA-[facility] Last Admin: 10/28/18 07:46 Dose: 40 mg Rosuvastatin Calcium (Crestor) 20 mg PO [facility] Last Admin: 10/27/18 19:45 Dose: 20 mg Senna/Docusate Sodium (Senokot S) 2 tab PO BID PRN PRN Reason: Constipation Sertraline HCl (Zoloft) 150 mg PO DAILY [facility] Last Admin: 10/28/18 07:46 Dose: 150 mg Sodium Chloride ([place] Nasal [place] 0.65%) 0 ml EA NARE QIDPRN PRN PRN Reason: Nasal Congestion Sodium Chloride (Flush - Normal Saline) 10 ml IVF Q12HR [facility] Sodium Chloride (Flush - Normal Saline) 10 ml IVF PRN PRN PRN Reason: Saline Flush Throat Lozenges (Cepastat Lozenges) 1 [place] PO Q2H PRN PRN Reason: Sore Throat Zolpidem Tartrate (Ambien) 5 mg PO HSPRN PRN PRN Reason: Insomnia
[2018-10-28] MEDS: hydrALAZINE 20 MG/ML VIAL SLOW IVP PRN (20:28)
[2018-10-28] MEDS: Acetaminophen 325 MG TAB PO PRN (20:29)
[2018-10-28] MEDS: Zolpidem Tartrate 5 MG TAB PO PRN (20:29)
[2018-10-28] MEDS: Tamsulosin HCl 0.4 MG CAP PO SCH (20:29)
[2018-10-28] MEDS: Rosuvastatin 20 MG TAB PO SCH (20:29)
--- NOTE | 2018-10-28 21:25 | RAD ---
Portable frontal chest radiograph: 10/28/2018 COMPARISON: 10/25/2018 HISTORY: Shortness of breath FINDINGS: There is a stable mass in the right suprahilar region. No pneumothorax is noted. There is e levation of the right hemidiaphragm. There is no lobar consolidation or alveolar edema. There is atherosclerotic calcification aortic arch. IMPRESSION: Stable mass lesion in the right suprahilar region. Findings are concerning for malignancy .
[2018-10-28] MEDS: cefTRIAXone\\ROCEPHIN 1 GM in Sodium Chloride 0.9% 100 ML IVPB SCH (21:50)
[2018-10-28] MEDS: Azithromycin 500 MG in Sodium Chloride 0.9% 250 ML 250 ML IVPB SCH (22:53)
--- NOTE | 2018-10-29 01:03 | CON ---
DATE OF CONSULTATION: 10/28/2018 REASON FOR CONSULTATION: 1. Urinary retention. 2. Left renal mass. HISTORY OF PRESENT ILLNESS: Mr. Dennis is a 73-year-old male who presented with acute onset of back pain. This has been going on for approximately 1 month and worsening. The patient was first evaluated by his primary care physician and had some imaging performed. At that time, there was evidently a finding in the liver, which was ill-defined and he was scheduled for additional imaging. In the interim, he began having some increasing cough as well as some hemoptysis. The patient had worsening of his back pain and he therefore presented to the emergency department. A CT of the chest demonstrated a pulmonary mass as well as some mediastinal lymphadenopathy. There was also a mass within the liver concerning for metastasis. There was questionable finding of a lesion in the kidney and a CT of the abdomen and pelvis was subsequently performed. This demonstrated a 1.2 cm hypodense, questionably enhancing left renal mass. The patient also was having progressive voiding difficulty as well as constipation. Throughout all of this, a bladder scan was performed and registered greater than 999 mL. A Acosta catheter was placed and he had 1.5 L immediate return followed by 2 additional liters over the next 5 hours. Urology was consulted for further evaluation. The patient denies any history of BPH in the past. He reports normal PSAs with his primary care physician. He has never taken BPH medications. No gross hematuria. The patient has had some weight loss over the past 6 months, which he cannot quantify. No gross hematuria. No other complaints. REVIEW OF SYSTEMS: Full 12-point review of systems was performed, it was negative other than mentioned in HPI. PHYSICAL EXAMINATION: VITAL SIGNS: Temperature 98.8, pulse 76, respirations 18, oxygen saturation 96% on 4.5 L nasal cannula. GENERAL: He is awake and alert. No apparent distress. HEENT: Normocephalic, atraumatic. NECK: Supple. No masses or lymphadenopathy. CARDIOVASCULAR: Regular rate and rhythm. PULMONARY: Breathing unlabored. ABDOMEN: Soft, nontender/nondistended. No masses or organomegaly. No suprapubic tenderness to palpation. No CVA tenderness. GENITOURINARY: Normal circumcised penis without concerning lesions. Scrotum normal. Testes palpably normal bilaterally. Acosta catheter is in place draining clear yellow urine. EXTREMITIES: Warm and well perfused. No edema. NEUROLOGIC: No focal deficits. LABORATORY DATA: White blood cell count 15.4, hemoglobin 12.1, hematocrit 38.4, platelets 244. Sodium 136, potassium 4.0, chloride 102, bicarb 19, BUN 20, creatinine 0.85. RADIOLOGY DATA: CT of the abdomen and pelvis demonstrates a 1.3 cm hypodense minimally enhancing mass involving the superior pole of the left kidney. There is also a 4 x 4.5 cm hypodense mass within the liver and multiple pulmonary nodules across both lung bases. ASSESSMENT: A 73-year-old male with benign prostatic hypertrophy, urinary retention, mediastinal lymphadenopathy, multiple pulmonary nodules, liver mass, left renal cyst versus mass. PLAN: 1. Urinary retention likely secondary to BPH in combination with his severe constipation. We will start tamsulosin. Leave Acosta catheter in place for now. He can follow up with Urology as an outpatient for voiding trial. 2. Left renal lesion. According to the radiology report, this is an enhancing mass, although it appears more cystic in nature. Given such a small mass, it is not likely this is related to his mediastinal lymphadenopathy, pulmonary nodules and liver mass. The patient underwent bronchoscopy with washings as well as biopsy, the results of which are pending. If this is inconclusive, the next step would be a percutaneous biopsy of this liver mass. If it is amiable to this via percutaneous approach, there is no indication for a urologic intervention at this time. Outpatient followup will be scheduled. Job ID: [id number]
[2018-10-29] MEDS: Morphine 4 MG/ML VIAL SLOW IVP PRN ×4 (04:54→20:29)
[2018-10-29] MEDS: Atenolol 25 MG TAB PO SCH (08:23)
[2018-10-29] MEDS: Aspirin 81 mg Enteric Coated Tablet PO SCH (08:23)
[2018-10-29] MEDS: Fenofibrate Nanocrystallized 145 MG TAB PO SCH (08:24)
[2018-10-29] MEDS: Lisinopril 10 MG TAB PO SCH (08:25)
[2018-10-29] MEDS: predniSONE 20 MG TAB PO SCH (08:25)
--- NOTE | 2018-10-29 10:25 | PDOC.PN ---
- Subjective Encounter Start Date: 10/29/18 Encounter Start Time: 09:10 pt has no BM, has davison, still has dyspnea, very weak - Objective Resuscitation Status - Order Detail: 10/25/18 23:44 Resuscitation Status Routine Resuscitation Status: FULL: Full Resuscitation MAR Reviewed: Yes Vital Signs & Weight: Vital Signs (12 hours) Temp Pulse Resp BP Pulse Ox 10/29/18 09:00 98.5 F 89 20 179/82 H 97 10/29/18 07:08 89 L 10/29/18 07:07 79 20 89 L 10/29/18 05:25 85 24 H 10/29/18 05:00 98.7 F 80 22 H 157/74 H 95 10/29/18 00:30 99 F 70 18 159/78 H 94 L 10/29/18 00:14 20 Weight Weight 189 lb 9.561 oz I&O: 10/28/18 10/29/18 10/30/18 06:59 06:59 06:59 Intake Total 850 2250 Output Total 3350 Balance 850 -1100 Result Diagrams: 10/27/18 06:26 10/27/18 06:26 Phys Exam - Physical Examination Constitutional: NAD HEENT: PERRLA, moist MMs, sclera anicteric Neck: no JVD, supple Respiratory: no wheezing, no rhonchi coarse sound+ Cardiovascular: RRR, no significant murmur, no rub Gastrointestinal: soft, non-tender, no distention, positive bowel sounds Musculoskeletal: no edema, pulses present Neurological: non-focal, normal sensation, moves all 4 limbs Lymphatic: no nodes Psychiatric: normal affect, A&O x 3 Skin: no rash, normal turgor Dx/Plan (1) Mass of upper lobe of right lung Code(s): R91.8 - OTHER NONSPECIFIC ABNORMAL FINDING OF LUNG FIELD Status: Acute (2) Postobstructive pneumonia Code(s): J18.9 - PNEUMONIA, UNSPECIFIED ORGANISM Status: Acute (3) Anxiety and depression Code(s): F41.9 - ANXIETY DISORDER, UNSPECIFIED; F32.9 - MAJOR DEPRESSIVE DISORDER, SINGLE EPISODE, UNSPECIFIED Status: Chronic (4) CAD (coronary artery disease) Code(s): I25.10 - ATHSCL HEART DISEASE OF [place] CORONARY ARTERY W/O ANG PCTRS Status: Chronic (5) Dyslipidemia Code(s): E78.5 - HYPERLIPIDEMIA, UNSPECIFIED Status: Chronic (6) Hypertension Code(s): I10 - ESSENTIAL (PRIMARY) HYPERTENSION Status: Chronic (7) Low back pain Code(s): M54.5 - LOW BACK PAIN Status: Chronic (8) PAD (peripheral artery disease) Code(s): I73.9 - PERIPHERAL VASCULAR DISEASE, UNSPECIFIED Status: Chronic (9) Acute respiratory failure with hypoxemia Code(s): J96.01 - ACUTE RESPIRATORY FAILURE WITH HYPOXIA Status: Acute (10) Acute urinary retention Code(s): R33.8 - OTHER RETENTION OF URINE Status: Acute (11) Liver metastases Code(s): C78.7 - SECONDARY MALIG NEOPLASM OF LIVER AND INTRAHEPATIC BILE DUCT Status: Acute (12) Renal mass Code(s): N28.89 - OTHER SPECIFIED DISORDERS OF KIDNEY AND URETER Status: Acute - Plan cont current plan of care, plan discussed w/ family, PT/OT, social worker health services * await pathology report * medication reviewed as below * symptomatic treatment * pt is clinically better than yesterday * may need liver biopsy * continue davison care * continue antibiotics. Review of Systems - Review of Systems Constitutional: weakness. negative: fever, chills, sweats, malaise, other Respiratory: Shortness of Breath, SOB with Excertion. negative: Cough, Dry, Hemoptysis, Pleuritic Pain, Sputum, Wheezing Cardiovascular: negative: chest pain, palpitations, orthopnea, paroxysmal nocturnal dyspnea, edema, light headedness, other Gastrointestinal: negative: Nausea, Vomiting, Abdominal Pain, Diarrhea, Constipation, Melena, Hematochezia, Other Genitourinary: negative: Dysuria, Frequency, Incontinence, Hematuria, Retention , Other Musculoskeletal: negative: Neck Pain, Shoulder Pain, Arm Pain, Back Pain, Hand Pain, Leg Pain, Foot Pain, Other Skin: negative: Rash, Lesions, Oscar, Bruising, Other - Medications/Allergies Allergies/Adverse Reactions: Allergies Allergy/AdvReac Type Severity Reaction Status Date / Time No Known Allergies Allergy Unverified 10/26/18 00:42 Medications: Current Medications Acetaminophen (Tylenol) 650 mg PO Q4H PRN PRN Reason: Headache/Fever/Mild Pain (1-3) Last Admin: 10/28/18 20:29 Dose: 650 mg Hydrocodone Bitart/Acetaminophen ([place] 5/325) 1 tab PO Q4H PRN PRN Reason: Moderate Pain (4-6) Last Admin: 10/28/18 22:53 Dose: 1 tab Albuterol/Ipratropium (Duoneb) 3 ml NEB [id number] PRN PRN Reason: SOB &/or Wheezing Last Admin: 10/29/18 05:25 Dose: 3 ml Albuterol/Ipratropium (Duoneb) 3 ml NEB [id number] [facility] Last Admin: 10/29/18 07:07 Dose: 3 ml Artificial Tears (Tears Naturale) 2 drop EA EYE PRN PRN PRN Reason: Dry Eyes Aspirin (Ecotrin) 81 mg PO DAILY [facility] Last Admin: 10/29/18 08:23 Dose: 81 mg Atenolol (Tenormin) 25 mg PO DAILY [facility] Last Admin: 10/29/18 08:23 Dose: 25 mg Calcium Carbonate (Tums) 1,000 mg PO Q4H PRN PRN Reason: Heartburn or Indigestion Fenofibrate (Tricor) 145 mg PO DAILY [facility] Last Admin: 10/29/18 08:24 Dose: 145 mg Guaifenesin (Robitussin Sf) 200 mg PO Q4H PRN PRN Reason: Cough Hydralazine HCl (Apresoline) 10 mg SLOW IVP Q4H PRN PRN Reason: SBP > 180 and HR < 70 Last Admin: 10/28/18 20:28 Dose: 10 mg Azithromycin 500 mg/ Sodium (Chloride) 250 mls @ 250 mls/hr IVPB Q24HR [facility] Last Admin: 10/28/18 22:53 Dose: 250 mls Ceftriaxone Sodium 1 gm/ (Sodium Chloride) 100 mls @ 200 mls/hr IVPB Q24HR [facility] Last Admin: 10/28/18 21:50 Dose: 100 mls Lisinopril (Zestril) 10 mg PO DAILY [facility] Last Admin: 10/29/18 08:25 Dose: 10 mg Loperamide HCl (Imodium) 2 mg PO PRN PRN PRN Reason: Diarrhea/Loose Stools Loratadine (Claritin) 10 mg PO DAILYPRN PRN PRN Reason: Sinus Symptoms Mineral Oil/White Petrolatum (Eucerin Cream) 0 gm TOP BIDPRN PRN PRN Reason: Dry Skin Morphine Sulfate (Morphine) 2 mg SLOW IVP Q4H PRN PRN Reason: Moderate to Severe Pain (7-10) Last Admin: 10/29/18 08:27 Dose: 2 mg Nitroglycerin (Nitrostat) 0.4 mg SL Q5MIN PRN PRN Reason: Chest Pain Ondansetron HCl (Zofran Odt) 4 mg SL Q6H PRN PRN Reason: Nausea/Vomiting Ondansetron HCl (Zofran) 4 mg IVP Q6H PRN PRN Reason: Nausea/Vomiting Prednisone (Prednisone) 40 mg PO [facility] Last Admin: 10/29/18 08:25 Dose: 40 mg Rosuvastatin Calcium (Crestor) 20 mg PO [facility] Last Admin: 10/28/18 20:29 Dose: 20 mg Senna/Docusate Sodium (Senokot S) 2 tab PO BID PRN PRN Reason: Constipation Last Admin: 10/29/18 08:29 Dose: 2 tab Sertraline HCl (Zoloft) 150 mg PO DAILY [facility] Last Admin: 10/29/18 08:24 Dose: 150 mg Sodium Chloride ([place] Nasal [place] 0.65%) 0 ml EA NARE QIDPRN PRN PRN Reason: Nasal Congestion Sodium Chloride (Flush - Normal Saline) 10 ml IVF Q12HR [facility] Last Admin: 10/29/18 08:25 Dose: 10 ml Sodium Chloride (Flush - Normal Saline) 10 ml IVF PRN PRN PRN Reason: Saline Flush Tamsulosin HCl (Flomax) 0.4 mg PO [facility] Last Admin: 10/28/18 20:29 Dose: 0.4 mg Throat Lozenges (Cepastat Lozenges) 1 [place] PO Q2H PRN PRN Reason: Sore Throat Zolpidem Tartrate (Ambien) 5 mg PO HSPRN PRN PRN Reason: Insomnia Last Admin: 10/28/18 20:29 Dose: 5 mg
[2018-10-29] MEDS ORDERED: Albuterol Sulfate 2.5 mg/3 ml Neb NEB PRN (13:18)
[2018-10-29] MEDS ORDERED: guaiFENesin ER 600 MG TAB PO SCH (13:30)
[2018-10-29] MEDS: HYDROcodone/Acetaminophen 5/325 mg Tablet PO PRN ×2 (13:43→21:24)
[2018-10-29] MEDS ORDERED: Ondansetron PF 4 MG/2 ML Vial ONE (13:44)
[2018-10-29] MEDS ORDERED: PROPOFOL 200 MG/20 ML VIAL ONE (13:44)
[2018-10-29] MEDS ORDERED: Dexamethasone 20 MG/5 ML VIAL ONE (13:44)
[2018-10-29] MEDS ORDERED: Lidocaine 1% PF 5 ML VIAL ONE (13:44)
[2018-10-29] MEDS ORDERED: Rocuronium Bromide 10 MG/ML (10ML VIAL) ONE (13:44)
[2018-10-29] MEDS ORDERED: Succinylcholine Chloride 20 MG/ML 10 ml SYRINGE FS ONE (13:44)
[2018-10-29] MEDS ORDERED: Glycopyrrolate 0.2 MG/ML 5 ML SYRINGE ONE (13:44)
[2018-10-29] MEDS ORDERED: ePHEDrine 50 MG/ML VIAL ONE (13:44)
--- NOTE | 2018-10-29 13:59 | PRG ---
DATE OF SERVICE: 10/29/2018 SERVICE: Pulmonary Medicine. INTERVAL HISTORY: The patient indicates that his breathing is not significantly better since the bronchoscopy. I did reassure him that it might take a little bit of time for this to improve. That being said, he has a cough and he is having hard time liberating some of that sputum. Additionally, he had multiple attempts to go into the bathroom yesterday, but could never relieve his bladder. Ultimately, a Acosta catheter was placed and over a liter and a half was evacuated. This is a new issue for him. He has never experienced anything like this before. PHYSICAL EXAMINATION: VITAL SIGNS: Afebrile. Pulse 80, blood pressure 158/86, respirations 20, saturation 92% on 3 L nasal cannula. GENERAL: The patient is awake and alert, in no apparent distress. LUNGS: Decreased air entry with a prolonged expiratory phase. Rhonchi are present, but do not clear with cough. There are some dependent crackles noted. HEART: Normal rate and regular. ABDOMEN: Soft, nontender, nondistended. Bowel sounds are positive. MUSCULOSKELETAL: No cyanosis or clubbing. No pitting in the bilateral lower extremities. NEUROLOGIC: Grossly nonfocal. LABORATORY DATA: WBC 15.4 and gently up-trending, hemoglobin 12.1, platelets 244,000. Neutrophil count is increasing. Basic metabolic profile, and liver function studies are unremarkable. Body fluid cultures negative to date. AFB and routine cultures are unremarkable. Normal respiratory flakito was present. IMAGING: Chest x-ray demonstrates stable right-sided mass lesion. There is no obvious consolidating changes, or pneumonia. There is a little volume loss on the right. A widened carinal angle is now present suggestive of left atrial dilation. ASSESSMENT: 1. Pulmonary mass. 2. Acute hypoxic respiratory failure. 3. Chronic obstructive pulmonary disease with acute exacerbation. 4. Urinary retention, likely secondary to BPH and ipratropium administration. 5. Mediastinal lymphadenopathy. DISCUSSION AND PLAN: I got some preliminary results from pathology suggesting this is likely going to be a non-small cell lung cancer. That being said, and is yet to finalize, so I have not had a conversation with the patient yet. I am going to discontinue the DuoNebs and put him on albuterol to decrease the effect that could have on urine retention. Mucinex will be scheduled. Pulmonary/Critical Care will continue to follow along for the time being. If this is a diagnostic study, he will likely need to be staged before additional sampling procedure as warranted. Pulmonary/Critical Care will continue to follow along. Job ID: [id number] MTDD
[2018-10-29] MEDS: Albuterol Sulfate 2.5 mg/3 ml Neb NEB SCH (18:09)
[2018-10-29] MEDS: hydrALAZINE 20 MG/ML VIAL SLOW IVP PRN (19:06)
[2018-10-29] MEDS: guaiFENesin ER 600 MG TAB PO SCH (20:29)
[2018-10-29] MEDS: Tamsulosin HCl 0.4 MG CAP PO SCH (20:29)
[2018-10-29] MEDS: Rosuvastatin 20 MG TAB PO SCH (20:29)
[2018-10-29] MEDS: Zolpidem Tartrate 5 MG TAB PO PRN (21:25)
[2018-10-29 21:55] LABS: Anion Gap 13 mmol/L (10-20); BUN (Urea Nitrogen) 24 mg/dL (8.4-25.7); Calc. Creatinine Clearance 107 mL/min (70-130); Calcium 9.4 mg/dL (7.8-10.44); Carbon Dioxide 28 mmol/L (23-31); Chloride 100 mmol/L (98-107); Estimated GFR-MDRD Greater than 90; Glucose 124 mg/dL (83-110); Potassium 4.1 mmol/L (3.5-5.1); Sodium 137 mmol/L (136-145)
[2018-10-29 22:17] LABS: Band 2 % (5-11); Eosinophils 1 % (0-10); Hemoglobin 12.7 g/dL (14.0-18.0); Lymphocytes 6 % (21-51); MDiff Complete? YES; Mean Corpuscular HGB CONC 33.1 g/dL (32.0-36.0); Mean Corpuscular Hemoglobin 29.9 pg (27.0-31.0); Mean Corpuscular Volume 90.5 fL (78.0-98.0); Monocytes 9 % (0-10); Neutrophil 82 % (42-75); Platelet Count 291 thou/uL (130-400); Red Blood Cell (RBC) Count 4.22 mill/uL (4.70-6.10); White Blood Cell (WBC) Count 20.3 thou/uL (4.8-10.8)
[2018-10-29] MEDS: cefTRIAXone\\ROCEPHIN 1 GM in Sodium Chloride 0.9% 100 ML IVPB SCH (22:48)
[2018-10-29] MEDS: Azithromycin 500 MG in Sodium Chloride 0.9% 250 ML 250 ML IVPB SCH (22:50)
[2018-10-30] MEDS: Albuterol Sulfate 2.5 mg/3 ml Neb NEB SCH ×6 (00:44→22:09)
[2018-10-30] MEDS: methylPREDNISolone Sod Succ/PF 125 MG/2 ML VIAL IVP SCH ×2 (01:20→07:45)
[2018-10-30] MEDS ORDERED: Vancomycin HCl 1 GM in Premix Bag 1 BAG IVPB SCH (01:30)
--- NOTE | 2018-10-30 01:42 | PDOC.EVN ---
Event Note - Event Note Event Note: Pt has continued to deteriorate overnight with sustained desaturation < 88 in 5 L NC, at rest and also with very minimal exertion, labored breathing, and b/ l rales and ronchi, will start him on Bipap, and monitor closely, stepped up on abt's given risk for nosocomial infection. Pulmonary already on the case will follow rec's
[2018-10-30] MEDS ORDERED: Piperacillin/Tazobactam 4.5 GM in Sodium Chloride 0.9% 100 ML IVPB SCH ×2 (02:00→12:00)
[2018-10-30] MEDS: Piperacillin/Tazobactam 4.5 GM in Sodium Chloride 0.9% 100 ML IVPB SCH ×3 (04:20→20:39)
[2018-10-30] MEDS: Aspirin 81 mg Enteric Coated Tablet PO SCH (07:45)
[2018-10-30] MEDS: Lisinopril 10 MG TAB PO SCH (07:45)
[2018-10-30] MEDS: guaiFENesin ER 600 MG TAB PO SCH ×2 (07:45→20:39)
[2018-10-30] MEDS: predniSONE 20 MG TAB PO SCH (07:45)
[2018-10-30] MEDS: Atenolol 25 MG TAB PO SCH (07:46)
[2018-10-30] MEDS: Fenofibrate Nanocrystallized 145 MG TAB PO SCH (07:47)
[2018-10-30] MEDS: Morphine 4 MG/ML VIAL SLOW IVP PRN ×2 (07:48→17:46)
--- NOTE | 2018-10-30 10:04 | PDOC.PN ---
- Subjective Encounter Start Date: 10/30/18 Encounter Start Time: 12:20 Subjective: Patient off Bipap at 1000 this AM, breathing better today. - Objective Resuscitation Status - Order Detail: 10/25/18 23:44 Resuscitation Status Routine Resuscitation Status: FULL: Full Resuscitation MAR Reviewed: Yes Vital Signs & Weight: Vital Signs (12 hours) Temp Pulse Resp BP BP Pulse Ox 10/30/18 07:46 78 186/84 H 10/30/18 07:45 186/84 H 10/30/18 07:05 97.6 F 10/30/18 06:20 74 10/30/18 06:18 74 18 99 10/30/18 03:51 98.4 F 10/30/18 01:30 98.2 F 80 10/30/18 00:44 65 18 93 L 10/29/18 22:51 98.0 F 80 16 158/75 H 92 L Weight Weight 189 lb 9.561 oz Most Recent Monitor Data Heart Rate from ECG 77 NIBP 176/87 NIBP BP-Mean 116 Respiration from ECG 20 SpO2 100 I&O: 10/29/18 10/30/18 10/31/18 06:59 06:59 06:59 Intake Total 2250 400 Output Total 3350 525 Balance -1100 -125 Result Diagrams: 10/29/18 21:09 10/29/18 21:09 Phys Exam - Physical Examination Constitutional: NAD HEENT: moist MMs on high flow O2 nasal cannula some wheezing and upper airway noises, no increased WOB right now Cardiovascular: RRR Gastrointestinal: soft, positive bowel sounds Neurological: non-focal Psychiatric: normal affect, A&O x 3 Dx/Plan (1) Acute respiratory failure with hypoxemia Code(s): J96.01 - ACUTE RESPIRATORY FAILURE WITH HYPOXIA Status: Acute Comment: requiring BiPAP overnight, antibiotics expanded (2) Postobstructive pneumonia Code(s): J18.9 - PNEUMONIA, UNSPECIFIED ORGANISM Status: Acute Comment: now on Zosyn, Azithromycin, dose of Vanc given (3) Mass of upper lobe of right lung Code(s): R91.8 - OTHER NONSPECIFIC ABNORMAL FINDING OF LUNG FIELD Status: Acute Comment: likely non-small cell lung cancer, pathology still pending (4) Acute urinary retention Code(s): R33.8 - OTHER RETENTION OF URINE Status: Acute Comment: likely due to BPH flaired by Ipratropium, davison in place (5) Liver metastases Code(s): C78.7 - SECONDARY MALIG NEOPLASM OF LIVER AND INTRAHEPATIC BILE DUCT Status: Acute (6) Renal mass Code(s): N28.89 - OTHER SPECIFIED DISORDERS OF KIDNEY AND URETER Status: Acute (7) Anxiety and depression Code(s): F41.9 - ANXIETY DISORDER, UNSPECIFIED; F32.9 - MAJOR DEPRESSIVE DISORDER, SINGLE EPISODE, UNSPECIFIED Status: Chronic (8) CAD (coronary artery disease) Code(s): I25.10 - ATHSCL HEART DISEASE OF [place] CORONARY ARTERY W/O ANG PCTRS Status: Chronic (9) Dyslipidemia Code(s): E78.5 - HYPERLIPIDEMIA, UNSPECIFIED Status: Chronic (10) Hypertension Code(s): I10 - ESSENTIAL (PRIMARY) HYPERTENSION Status: Chronic (11) Low back pain Code(s): M54.5 - LOW BACK PAIN Status: Chronic (12) PAD (peripheral artery disease) Code(s): I73.9 - PERIPHERAL VASCULAR DISEASE, UNSPECIFIED Status: Chronic - Plan cont current plan of care, continue antibiotics, PT/OT, respiratory therapy, DVT proph w/SCDs * . - Discharge Day Encounter end time: 12:30
[2018-10-30] MEDS: hydrALAZINE 20 MG/ML VIAL SLOW IVP PRN (10:15)
[2018-10-30 10:26] LABS: Actual Bicarbonate (HCO3a) 24.9 mEq/L (22-28); Analyzer IN Cardio ER; Base Excess (BEa) 1.3 mEq/L (-2.0 to +3.0); Calcium, Ionized 1.24 mmol/L (1.12-1.30); Carboxyhemoglobin (COHb) 0.4 gm% (0.0-3.0); Hemoglobin (Hb) 13.1 g/dL (14.0-18.0); O2 Tension (PaO2) 61.8 mmHg (> 70.0); Potassium - ABG Lab 4.45 mmol/L (3.70-5.30); pH, Arterial 7.46 (7.35-7.45)
[2018-10-30 10:27] LABS: Puncture Site RRA
[2018-10-30] MEDS ORDERED: Furosemide 40 MG/4 ML VIAL SLOW IVP SCH (11:00)
--- NOTE | 2018-10-30 11:08 | PRG ---
DATE OF SERVICE: 10/30/2018 SERVICE: Pulmonary Medicine. INTERVAL HISTORY: The patient is doing poorly from respiratory standpoint. Overnight, he was brought down to the [facility] and initiated on noninvasive therapy because of increasing work of breathing. He indicates that being on the BiPAP helped him slightly. He denies any current fevers or chills. He is coughing. He is not able to bring up any sputum, but he feels a rattling in his chest. PHYSICAL EXAMINATION: VITAL SIGNS: Afebrile, pulse 78, blood pressure 186/84, respirations 20, and saturation 97% on 3 L nasal cannula. GENERAL: The patient is awake and alert. He is in [id number] respiratory distress. He is using accessory muscles, and actively vero his abdominal muscles on exhalation. HEENT: Normocephalic and atraumatic. Sclerae white. Conjunctivae pink. Oral mucosa is moist without lesions. LUNGS: Rhonchi are present throughout bilateral lung bui. There is a prolonged expiratory phase and very fine wheezing present. I also hear some diffuse crackles. HEART: Normal rate. Regular. ABDOMEN: Soft, nontender, and nondistended. Bowel sounds are positive. MUSCULOSKELETAL: No cyanosis or clubbing. There is no pitting in the bilateral lower extremities. NEUROLOGIC: Grossly nonfocal. LABORATORY DATA: Respiratory cultures negative to-date. AFB smear and culture unremarkable. ASSESSMENT: 1. Pulmonary mass, status post biopsy. 2. Acute hypoxic respiratory failure. 3. Chronic obstructive pulmonary disease with acute exacerbation. 4. Urinary retention, possibly secondary to benign prostatic hyperplasia and anticholinergic medication. 5. Mediastinal lymphadenopathy, status post biopsy. DISCUSSION AND PLAN: I will repeat a chest x-ray and get an ABG. I am going to initiate physiotherapy twice daily. We will increase our frequency of albuterol nebulized medications to q.4 while we will continue the steroids and antibiotics. There is no need to escalate his dose of steroids. Pulmonary/Critical Care will continue to follow very closely in the [facility]. Job ID: [id number]
--- NOTE | 2018-10-30 11:09 | RAD ---
Portable frontal chest radiograph: 10/30/2018 COMPARISON: 10/28/2018 HISTORY: Shortness of breath FINDINGS: Right perihilar and suprahilar mass density noted, stable. Stable elevation of right hemidi aphragm. Left lung appears clear. No pneumothorax. IMPRESSION: Mass density in right perihilar/right suprahilar region concerning for underlying maligna ncy. No significant interval change..
[2018-10-30] MEDS: ALPRAZolam 0.5 MG TAB PO PRN ×2 (11:42→20:42)
[2018-10-30 13:15] LABS: Bilirubin Negative (Negative); Blood, Urine Moderate (Negative); Clarity CLEAR (Clear); Glucose, Urine (Dipstick) Negative (Negative); Leukocyte Negative (Negative); Nitrite Negative (Negative); Protein, Urine (Dipstick) Negative (Neg-Trace); Specific Gravity, Urine 1.007 (1.002-1.036); Urobilinogen 0.2 mg/dL (0.2-1.0); pH, Urine 5.5 (5.0-9.0)
[2018-10-30 13:20] LABS: Bacteria/HPF None Seen HPF (None Seen); Hyaline Casts/LPF 0-3 HYALINE CAST LPF (0-3 Hyaline); Pathc Cast-AUWi Flag 0.13 (0-2.49); RBC/HPF 21-50 HPF (0-3); Squamous Epithelial None Seen HPF (0-3); WBC/HPF 0-3 HPF (0-3)
[2018-10-30] MEDS: Tamsulosin HCl 0.4 MG CAP PO SCH (20:39)
[2018-10-30] MEDS: HYDROcodone/Acetaminophen 5/325 mg Tablet PO PRN (20:42)
[2018-10-31] MEDS: HYDROcodone/Acetaminophen 5/325 mg Tablet PO PRN ×4 (02:20→22:47)
[2018-10-31] MEDS: hydrALAZINE 20 MG/ML VIAL SLOW IVP PRN (02:21)
[2018-10-31] MEDS: Albuterol Sulfate 2.5 mg/3 ml Neb NEB SCH ×6 (02:27→22:15)
[2018-10-31] MEDS: Piperacillin/Tazobactam 4.5 GM in Sodium Chloride 0.9% 100 ML IVPB SCH ×3 (04:18→20:23)
[2018-10-31 05:45] LABS: #Eosinphils 1.4 thou/uL (0.0-0.7); #Lymphocytes 1.6 thou/uL (1.20-3.40); #Monocytes 1.8 thou/uL (0.11-0.59); %Eosinophils 6.6 % (0.0-10.0); %Lymphocytes 7.6 % (21.0-51.0); %Monocytes 8.8 % (0.0-10.0); %Neutrophils 77.1 % (42.0-75.0); Hemoglobin 11.9 g/dL (14.0-18.0); Mean Corpuscular HGB CONC 32.4 g/dL (32.0-36.0); Mean Corpuscular Hemoglobin 29.4 pg (27.0-31.0); Mean Corpuscular Volume 90.9 fL (78.0-98.0); Mean Platelet Volume 7.1 fL (7.4-10.4); Platelet Count 284 thou/uL (130-400); RBC Distribution Width 11.9 % (11.5-14.5); Red Blood Cell (RBC) Count 4.03 mill/uL (4.70-6.10); White Blood Cell (WBC) Count 20.8 thou/uL (4.8-10.8)
[2018-10-31 06:06] LABS: Anion Gap 11 mmol/L (10-20); BUN (Urea Nitrogen) 31 mg/dL (8.4-25.7); Calc. Creatinine Clearance 96 mL/min (70-130); Calcium 8.9 mg/dL (7.8-10.44); Carbon Dioxide 29 mmol/L (23-31); Chloride 104 mmol/L (98-107); Estimated GFR-MDRD 89; Glucose 103 mg/dL (83-110); Magnesium 2.1 mg/dL (1.6-2.6); Potassium 3.4 mmol/L (3.5-5.1); Sodium 141 mmol/L (136-145)
[2018-10-31] MEDS: Furosemide 40 MG/4 ML VIAL SLOW IVP SCH (06:54)
[2018-10-31] MEDS: predniSONE 20 MG TAB PO SCH (08:16)
[2018-10-31] MEDS: Lisinopril 10 MG TAB PO SCH (08:16)
[2018-10-31] MEDS: Fenofibrate Nanocrystallized 145 MG TAB PO SCH (08:17)
[2018-10-31] MEDS: guaiFENesin ER 600 MG TAB PO SCH ×2 (08:17→20:23)
[2018-10-31] MEDS: Aspirin 81 mg Enteric Coated Tablet PO SCH (08:17)
[2018-10-31] MEDS: Atenolol 25 MG TAB PO SCH (08:17)
[2018-10-31] MEDS: Morphine 4 MG/ML VIAL SLOW IVP PRN ×3 (10:59→20:24)
[2018-10-31] MEDS: Potassium Chloride 20 MEQ TAB PO SCH ×2 (12:40→16:28)
--- NOTE | 2018-10-31 12:52 | PRG ---
DATE OF SERVICE: 10/31/2018 SERVICE: Pulmonary Medicine. INTERVAL HISTORY: The patient is breathing much more comfortably today. His appetite is actually picked up. He denies any current chest pain, fevers, or chills. Otherwise, there has been no interval change to his condition. PHYSICAL EXAMINATION: VITAL SIGNS: Afebrile, pulse 69, blood pressure 142/77, respirations 14, and saturation 100% on high-flow nasal cannula. HEENT: Normocephalic and atraumatic. Sclerae white. Conjunctivae pink. Oral mucosa is moist without lesions. LUNGS: Decent air entry. There is some rhonchi present. Dependent crackles are minimal. I really do not appreciate much in way of prolonged expiratory phase or wheezing today. HEART: Normal rate and regular. ABDOMEN: Soft, nontender, and nondistended. Bowel sounds are positive. MUSCULOSKELETAL: No cyanosis or clubbing. No pitting in the bilateral lower extremities. NEUROLOGIC: Grossly nonfocal. LABORATORY DATA: WBC 20.8, hemoglobin 11.9, platelets 284,000. Bicarb 29. Creatinine 0.85, BUN gently up-trending. Potassium 3.4. Magnesium 2.1, BNP 433, which was previously elevated. Urine culture, acid-fast bacilli, and respiratory culture are all negative to date. IMAGING STUDIES: Chest x-ray demonstrates no significant interval change. There is a right suprahilar mass present. Infiltrate behind that mass cannot entirely be excluded. Volume loss is present on the right. ASSESSMENT: 1. Pulmonary mass, brushing positive for malignant cells. Endobronchial biopsies are currently pending. 2. Acute hypoxic respiratory failure. 3. Chronic obstructive pulmonary disease with acute exacerbation. 4. Mediastinal lymphadenopathy, sampling at R10 demonstrates malignant cells. 5. Urinary retention secondary to BPH. DISCUSSION AND PLAN: Continue antibiotics, nebulized medications, and steroids. Pulmonary/Critical Care will continue to follow in this location. We will try to get him off the high-flow nasal cannula, converted him over to just regular nasal cannula. If he can successfully make this transition, we will talk about getting out of the ICU. Pulmonary/Critical Care will continue to follow along in this location. It would appear that the patient has a non-small cell cancer, though definitive studies are currently pending. Job ID: [id number]
--- NOTE | 2018-10-31 18:08 | PDOC.PN ---
- Subjective Encounter Start Date: 10/31/18 Encounter Start Time: 10:00 Pt seen for followup re: acute hypoxic respiratory failure. Says he feels better. - Objective Resuscitation Status - Order Detail: 10/25/18 23:44 Resuscitation Status Routine Resuscitation Status: FULL: Full Resuscitation Vital Signs & Weight: Vital Signs (12 hours) Temp Pulse Pulse Pulse Resp BP BP 10/31/18 15:59 10/31/18 15:41 10/31/18 15:39 67 23 H 10/31/18 15:11 70 91 161/81 H 10/31/18 14:45 97.0 F L 10/31/18 11:28 10/31/18 11:25 69 21 H 10/31/18 10:33 98.3 F 10/31/18 08:18 76 20 10/31/18 08:17 78 149/93 H 10/31/18 08:16 149/93 H 10/31/18 08:12 10/31/18 08:05 76 20 10/31/18 08:00 10/31/18 07:10 98.2 F BP Pulse Ox Pulse Ox Pulse Ox 10/31/18 15:59 100 10/31/18 15:41 99 10/31/18 15:39 99 10/31/18 15:11 149/72 H 100 69 L 10/31/18 14:45 10/31/18 11:28 100 10/31/18 11:25 100 10/31/18 10:33 10/31/18 08:18 100 10/31/18 08:17 10/31/18 08:16 10/31/18 08:12 100 10/31/18 08:05 100 10/31/18 08:00 98 10/31/18 07:10 Weight Weight 189 lb 9.561 oz Most Recent Monitor Data Heart Rate from ECG 75 NIBP 164/84 NIBP BP-Mean 110 Respiration from ECG 20 SpO2 99 I&O: 10/30/18 10/31/18 11/01/18 06:59 06:59 06:59 Intake Total 400 1214 800 Output Total 525 2050 1350 Balance -125 -836 -550 Result Diagrams: 10/31/18 05:18 10/31/18 05:18 Phys Exam - Physical Examination Constitutional: NAD HEENT: moist MMs Neck: supple Respiratory: clear to auscultation bilateral Cardiovascular: RRR Gastrointestinal: soft Neurological: moves all 4 limbs Psychiatric: normal affect Dx/Plan (1) Acute respiratory failure with hypoxemia Code(s): J96.01 - ACUTE RESPIRATORY FAILURE WITH HYPOXIA Status: Acute Comment: requiring BiPAP overnight, improving (2) Mass of upper lobe of right lung Code(s): R91.8 - OTHER NONSPECIFIC ABNORMAL FINDING OF LUNG FIELD Status: Acute Comment: likely non-small cell lung cancer (3) CAD (coronary artery disease) Code(s): I25.10 - ATHSCL HEART DISEASE OF [place] CORONARY ARTERY W/O ANG PCTRS Status: Chronic Comment: stable (4) Hypertension Code(s): I10 - ESSENTIAL (PRIMARY) HYPERTENSION Status: Chronic Comment: monitor vital signs, titrate antihypertensives as needed - Plan * . Review of Systems - Review of Systems Respiratory: Cough, Dry, SOB with Excertion. negative: Shortness of Breath, Hemoptysis, Pleuritic Pain, Sputum, Wheezing Cardiovascular: negative: chest pain, palpitations, orthopnea, paroxysmal nocturnal dyspnea, edema, light headedness - Medications/Allergies Allergies/Adverse Reactions: Allergies Allergy/AdvReac Type Severity Reaction Status Date / Time No Known Allergies Allergy Unverified 10/26/18 00:42 Medications: Current Medications Acetaminophen (Tylenol) 650 mg PO Q4H PRN PRN Reason: Headache/Fever/Mild Pain (1-3) Last Admin: 10/28/18 20:29 Dose: 650 mg Hydrocodone Bitart/Acetaminophen ([place] 5/325) 1 tab PO Q4H PRN PRN Reason: Moderate Pain (4-6) Last Admin: 10/31/18 12:42 Dose: 1 tab Albuterol Sulfate (Ventolin) 2.5 mg NEB [id number] PRN PRN Reason: Wheezing Last Admin: 10/29/18 20:48 Dose: 2.5 mg Albuterol Sulfate (Ventolin) 2.5 mg NEB [id number] Last Admin: 10/31/18 15:39 Dose: 2.5 mg Alprazolam (Xanax) 0.5 mg PO TID PRN PRN Reason: Anxiety Last Admin: 10/30/18 20:42 Dose: 0.5 mg Artificial Tears (Tears Naturale) 2 drop EA EYE PRN PRN PRN Reason: Dry Eyes Aspirin (Ecotrin) 81 mg PO DAILY [facility] Last Admin: 10/31/18 08:17 Dose: 81 mg Atenolol (Tenormin) 25 mg PO DAILY [facility] Last Admin: 10/31/18 08:17 Dose: 25 mg Calcium Carbonate (Tums) 1,000 mg PO Q4H PRN PRN Reason: Heartburn or Indigestion Fenofibrate (Tricor) 145 mg PO DAILY [facility] Last Admin: 10/31/18 08:17 Dose: 145 mg Furosemide (Lasix) 40 mg SLOW IVP 0600 [facility] Last Admin: 10/31/18 06:54 Dose: 40 mg Guaifenesin (Robitussin Sf) 200 mg PO Q4H PRN PRN Reason: Cough Guaifenesin (Mucinex) 600 mg PO Q12HR [facility] Last Admin: 10/31/18 08:17 Dose: 600 mg Hydralazine HCl (Apresoline) 10 mg SLOW IVP Q4H PRN PRN Reason: SBP > 180 and HR < 70 Last Admin: 10/31/18 02:21 Dose: 10 mg Piperacillin Sod/Tazobactam (Sod 4.5 gm/ Sodium Chloride) 100 mls @ 200 mls/hr IVPB 0400,1200,2000 [facility] Last Admin: 10/31/18 11:00 Dose: 100 mls Lisinopril (Zestril) 10 mg PO DAILY [facility] Last Admin: 10/31/18 08:16 Dose: 10 mg Loperamide HCl (Imodium) 2 mg PO PRN PRN PRN Reason: Diarrhea/Loose Stools Loratadine (Claritin) 10 mg PO DAILYPRN PRN PRN Reason: Sinus Symptoms Mineral Oil/White Petrolatum (Eucerin Cream) 0 gm TOP BIDPRN PRN PRN Reason: Dry Skin Morphine Sulfate (Morphine) 2 mg SLOW IVP Q4H PRN PRN Reason: Moderate to Severe Pain (7-10) Last Admin: 10/31/18 16:28 Dose: 2 mg Nitroglycerin (Nitrostat) 0.4 mg SL Q5MIN PRN PRN Reason: Chest Pain Ondansetron HCl (Zofran Odt) 4 mg SL Q6H PRN PRN Reason: Nausea/Vomiting Ondansetron HCl (Zofran) 4 mg IVP Q6H PRN PRN Reason: Nausea/Vomiting Prednisone (Prednisone) 40 mg PO QAM-WM [facility] Last Admin: 10/31/18 08:16 Dose: 40 mg Senna/Docusate Sodium (Senokot S) 2 tab PO BID PRN PRN Reason: Constipation Last Admin: 10/29/18 08:29 Dose: 2 tab Sertraline HCl (Zoloft) 150 mg PO DAILY [facility] Last Admin: 10/31/18 08:17 Dose: 150 mg Sodium Chloride ([place] Nasal [place] 0.65%) 0 ml EA NARE QIDPRN PRN PRN Reason: Nasal Congestion Sodium Chloride (Flush - Normal Saline) 10 ml IVF Q12HR [facility] Last Admin: 10/31/18 11:00 Dose: 10 ml Sodium Chloride (Flush - Normal Saline) 10 ml IVF PRN PRN PRN Reason: Saline Flush Last Admin: 10/31/18 06:55 Dose: 10 ml Tamsulosin HCl (Flomax) 0.4 mg PO HS [facility] Last Admin: 10/30/18 20:39 Dose: 0.4 mg Throat Lozenges (Cepastat Lozenges) 1 [place] PO Q2H PRN PRN Reason: Sore Throat Zolpidem Tartrate (Ambien) 5 mg PO HSPRN PRN PRN Reason: Insomnia Last Admin: 10/29/18 21:25 Dose: 5 mg
[2018-10-31] MEDS: Tamsulosin HCl 0.4 MG CAP PO SCH (20:23)
[2018-11-01] MEDS: Albuterol Sulfate 2.5 mg/3 ml Neb NEB SCH ×6 (02:16→22:22)
[2018-11-01] MEDS: Morphine 4 MG/ML VIAL SLOW IVP PRN ×4 (02:45→22:23)
[2018-11-01] MEDS: Piperacillin/Tazobactam 4.5 GM in Sodium Chloride 0.9% 100 ML IVPB SCH ×3 (03:45→19:58)
[2018-11-01 05:22] LABS: #Eosinphils 1.6 thou/uL (0.0-0.7); #Lymphocytes 1.4 thou/uL (1.20-3.40); #Monocytes 1.6 thou/uL (0.11-0.59); #Neutrophils 14.2 thou/uL (1.40-6.50); %Basophils 0.1 % (0.0-1.0); %Eosinophils 8.5 % (0.0-10.0); %Lymphocytes 7.4 % (21.0-51.0); %Monocytes 8.3 % (0.0-10.0); %Neutrophils 75.7 % (42.0-75.0); Hemoglobin 11.7 g/dL (14.0-18.0); Mean Corpuscular HGB CONC 31.8 g/dL (32.0-36.0); Mean Corpuscular Hemoglobin 29.2 pg (27.0-31.0); Mean Corpuscular Volume 91.6 fL (78.0-98.0); Mean Platelet Volume 7.5 fL (7.4-10.4); Platelet Count 269 thou/uL (130-400); RBC Distribution Width 11.9 % (11.5-14.5); White Blood Cell (WBC) Count 18.8 thou/uL (4.8-10.8)
[2018-11-01 05:52] LABS: Anion Gap 13 mmol/L (10-20); BUN (Urea Nitrogen) 34 mg/dL (8.4-25.7); Calc. Creatinine Clearance 97 mL/min (70-130); Carbon Dioxide 27 mmol/L (23-31); Chloride 106 mmol/L (98-107); Estimated GFR-MDRD 90; Glucose 98 mg/dL (83-110); Potassium 3.7 mmol/L (3.5-5.1); Sodium 142 mmol/L (136-145)
[2018-11-01] MEDS: HYDROcodone/Acetaminophen 5/325 mg Tablet PO PRN ×3 (06:12→19:56)
[2018-11-01] MEDS: Furosemide 40 MG/4 ML VIAL SLOW IVP SCH (06:13)
[2018-11-01] MEDS: Lisinopril 10 MG TAB PO SCH (08:39)
[2018-11-01] MEDS: Atenolol 25 MG TAB PO SCH (08:40)
[2018-11-01] MEDS: Fenofibrate Nanocrystallized 145 MG TAB PO SCH (08:40)
[2018-11-01] MEDS: predniSONE 20 MG TAB PO SCH (08:40)
[2018-11-01] MEDS: guaiFENesin ER 600 MG TAB PO SCH ×2 (08:41→20:00)
[2018-11-01] MEDS: Aspirin 81 mg Enteric Coated Tablet PO SCH (08:41)
[2018-11-01] MEDS ORDERED: Potassium Chloride 20 MEQ TAB PO SCH (12:15)
--- NOTE | 2018-11-01 12:21 | PDOC.PN ---
- Subjective Encounter Start Date: 11/01/18 Encounter Start Time: 12:19 Subjective: Admitted with worsening low back pain. Also was having worsening cough/SOB -: Found to have bilateral lung, liver and left kidney mass. -: S/p bronchoscopy with biopsy. Feeling better. still having back pain. - Objective Resuscitation Status - Order Detail: 10/25/18 23:44 Resuscitation Status Routine Resuscitation Status: FULL: Full Resuscitation Vital Signs & Weight: Vital Signs (12 hours) Temp Pulse Resp BP BP Pulse Ox 11/01/18 11:22 97.0 F L 11/01/18 10:33 67 17 99 11/01/18 08:40 90 159/79 H 11/01/18 08:39 159/79 H 11/01/18 08:00 84 17 159/79 H 97 11/01/18 07:24 76 14 99 11/01/18 07:23 99 11/01/18 07:19 73 14 99 11/01/18 07:14 96.7 F L 11/01/18 04:00 98.0 F 11/01/18 02:16 73 15 100 Weight Weight 189 lb 9.561 oz Most Recent Monitor Data Heart Rate from ECG 69 NIBP 149/75 NIBP BP-Mean 99 Respiration from ECG 12 SpO2 95 I&O: 10/31/18 11/01/18 11/02/18 06:59 06:59 06:59 Intake Total 1214 1915 Output Total 2049 2099 Balance -836 -185 Result Diagrams: 11/01/18 04:34 11/01/18 04:34 Phys Exam - Physical Examination Constitutional: NAD afebrile HEENT: PERRLA, moist MMs Neck: no JVD, supple fair air entry with few scattered transmitted sound and rhonchi Cardiovascular: RRR Gastrointestinal: soft, non-tender, no distention, positive bowel sounds Musculoskeletal: no edema, pulses present Neurological: non-focal, moves all 4 limbs Psychiatric: A&O x 3 Dx/Plan (1) Malignant neoplasm of right lung Code(s): C34.91 - MALIGNANT NEOPLASM OF UNSP PART OF RIGHT BRONCHUS OR LUNG Status: Acute (2) COPD exacerbation Code(s): J44.1 - CHRONIC OBSTRUCTIVE PULMONARY DISEASE W (ACUTE) EXACERBATION Status: Acute (3) Acute respiratory failure with hypoxemia Code(s): J96.01 - ACUTE RESPIRATORY FAILURE WITH HYPOXIA Status: Acute Comment: requiring BiPAP overnight, improving (4) Acute urinary retention Code(s): R33.8 - OTHER RETENTION OF URINE Status: Acute Comment: likely due to BPH flaired by Ipratropium, davison in place (5) Liver metastases Code(s): C78.7 - SECONDARY MALIG NEOPLASM OF LIVER AND INTRAHEPATIC BILE DUCT Status: Acute (6) Mass of upper lobe of right lung Code(s): R91.8 - OTHER NONSPECIFIC ABNORMAL FINDING OF LUNG FIELD Status: Acute Comment: likely non-small cell lung cancer (7) Postobstructive pneumonia Code(s): J18.9 - PNEUMONIA, UNSPECIFIED ORGANISM Status: Acute Comment: now on Zosyn, Azithromycin, dose of Vanc given (8) Renal mass Code(s): N28.89 - OTHER SPECIFIED DISORDERS OF KIDNEY AND URETER Status: Acute (9) Anxiety and depression Code(s): F41.9 - ANXIETY DISORDER, UNSPECIFIED; F32.9 - MAJOR DEPRESSIVE DISORDER, SINGLE EPISODE, UNSPECIFIED Status: Chronic (10) CAD (coronary artery disease) Code(s): I25.10 - ATHSCL HEART DISEASE OF [place] CORONARY ARTERY W/O ANG PCTRS Status: Chronic Comment: stable (11) Dyslipidemia Code(s): E78.5 - HYPERLIPIDEMIA, UNSPECIFIED Status: Chronic (12) Hypertension Code(s): I10 - ESSENTIAL (PRIMARY) HYPERTENSION Status: Chronic Comment: monitor vital signs, titrate antihypertensives as needed (13) Low back pain Code(s): M54.5 - LOW BACK PAIN Status: Chronic (14) PAD (peripheral artery disease) Code(s): I73.9 - PERIPHERAL VASCULAR DISEASE, UNSPECIFIED Status: Chronic - Plan Continue current treatment. -: Wean oxygen as tolerated. -: Awaiting lung biopsy report. -: transfer to medical floor. -: Diet as tolerated. add lidocaine to back * .
--- NOTE | 2018-11-01 12:28 | PRG ---
DATE OF SERVICE: 11/01/2018 SERVICE: Pulmonary Medicine. INTERVAL HISTORY: The patient is doing really well from respiratory standpoint. Breathing comfortably. Denies any current chest pain, fevers, chills, nausea, or vomiting. Otherwise, there has been no interval change in the patient's condition. He successfully transitioned off high-flow nasal cannula on 2 L nasal cannula. His sats were in the upper 90s. As such, we will continue to wean oxygen through time. PHYSICAL EXAMINATION: VITAL SIGNS: Afebrile, pulse 67, blood pressure 149/75, respirations 17, and saturation 99% on 1 L nasal cannula. GENERAL: The patient is awake and alert, in no apparent distress. LUNGS: Excellent air entry. There is no prolonged expiratory phase or wheezing present. HEART: Normal rate and regular. ABDOMEN: Soft, nontender, and nondistended. Bowel sounds are positive. MUSCULOSKELETAL: No cyanosis or clubbing. There is no pitting in the bilateral lower extremities. NEUROLOGIC: Grossly nonfocal. LABORATORY DATA: WBC 18.8, hemoglobin 11.7, platelets 269,000. Basic metabolic profile is completely unremarkable/stable. Potassium 3.7. ASSESSMENT: 1. Pulmonary mass, consistent with non-small cell lung cancer. 2. Acute hypoxic respiratory failure, resolving. 3. Chronic obstructive pulmonary disease with acute exacerbation. 4. Mediastinal lymphadenopathy, R10 positive for malignant cells. 5. Urinary retention. DISCUSSION AND PLAN: I will replace the potassium once again. At this point, the patient is stable for transition out of the IMCU to the medical unit. We will continue nebulized medications, antibiotics, and steroids as well as other supportive care. We will increase our mobilization efforts through time. I will continue to follow while he remains inhouse. Job ID: [id number]
[2018-11-01] MEDS: Lidocaine 5% Patch TD SCH (13:48)
[2018-11-01] MEDS: Tamsulosin HCl 0.4 MG CAP PO SCH (20:00)
[2018-11-02] MEDS: HYDROcodone/Acetaminophen 5/325 mg Tablet PO PRN ×4 (01:52→19:32)
[2018-11-02] MEDS: Lidocaine Patch Removal 1 EACH TOP SCH (02:48)
[2018-11-02] MEDS: Albuterol Sulfate 2.5 mg/3 ml Neb NEB SCH ×6 (02:55→22:03)
[2018-11-02] MEDS: Piperacillin/Tazobactam 4.5 GM in Sodium Chloride 0.9% 100 ML IVPB SCH ×3 (03:45→19:33)
[2018-11-02 05:17] VITALS: BMI 25.3
[2018-11-02] MEDS: Morphine 4 MG/ML VIAL SLOW IVP PRN ×3 (05:52→15:52)
[2018-11-02] MEDS: Atenolol 25 MG TAB PO SCH (08:37)
[2018-11-02] MEDS: predniSONE 20 MG TAB PO SCH (08:38)
[2018-11-02] MEDS: guaiFENesin ER 600 MG TAB PO SCH ×2 (08:38→20:06)
[2018-11-02] MEDS: Lisinopril 10 MG TAB PO SCH (08:38)
[2018-11-02] MEDS: Aspirin 81 mg Enteric Coated Tablet PO SCH (08:39)
[2018-11-02] MEDS: Fenofibrate Nanocrystallized 145 MG TAB PO SCH (08:39)
[2018-11-02] MEDS ORDERED: Lidocaine 5% Patch TD SCH (09:00)
--- NOTE | 2018-11-02 11:20 | PDOC.PN ---
- Subjective Encounter Start Date: 11/02/18 Encounter Start Time: 11:18 Subjective: No new problem -: Still having low back pain. rated at about 5-6/10. -: Cough is better. No fever or worsening SOB. still on oxygen - Objective Resuscitation Status - Order Detail: 10/25/18 23:44 Resuscitation Status Routine Resuscitation Status: FULL: Full Resuscitation Vital Signs & Weight: Vital Signs (12 hours) Temp Pulse Resp BP Pulse Ox 11/02/18 11:08 98.6 F 11/02/18 08:38 186/80 H 11/02/18 08:37 86 186/80 H 11/02/18 07:54 79 21 H 97 11/02/18 07:19 98.7 F 11/02/18 02:55 77 19 97 Weight Weight 180 lb 14.4 oz Most Recent Monitor Data Heart Rate from ECG 68 NIBP 165/87 NIBP BP-Mean 113 Respiration from ECG 22 SpO2 93 I&O: 11/01/18 11/02/18 11/03/18 06:59 06:59 06:59 Intake Total 1915 1721 Output Total 2100 2850 Balance -185 -1129 Result Diagrams: 11/01/18 04:34 11/01/18 04:34 Phys Exam - Physical Examination Constitutional: NAD afebrile HEENT: moist MMs Neck: no JVD, supple Respiratory: no wheezing, no rhonchi good air entry bilaterally with few transmitted sound. Cardiovascular: RRR, no significant murmur Gastrointestinal: soft, non-tender, no distention, positive bowel sounds Musculoskeletal: no edema, pulses present Neurological: non-focal, moves all 4 limbs Psychiatric: A&O x 3 Dx/Plan (1) Malignant neoplasm of right lung Code(s): C34.91 - MALIGNANT NEOPLASM OF UNSP PART OF RIGHT BRONCHUS OR LUNG Status: Acute (2) COPD exacerbation Code(s): J44.1 - CHRONIC OBSTRUCTIVE PULMONARY DISEASE W (ACUTE) EXACERBATION Status: Acute (3) Acute respiratory failure with hypoxemia Code(s): J96.01 - ACUTE RESPIRATORY FAILURE WITH HYPOXIA Status: Acute Comment: requiring BiPAP overnight, improving (4) Acute urinary retention Code(s): R33.8 - OTHER RETENTION OF URINE Status: Acute Comment: likely due to BPH flaired by Ipratropium, davison in place (5) Liver metastases Code(s): C78.7 - SECONDARY MALIG NEOPLASM OF LIVER AND INTRAHEPATIC BILE DUCT Status: Acute (6) Mass of upper lobe of right lung Code(s): R91.8 - OTHER NONSPECIFIC ABNORMAL FINDING OF LUNG FIELD Status: Acute Comment: likely non-small cell lung cancer (7) Postobstructive pneumonia Code(s): J18.9 - PNEUMONIA, UNSPECIFIED ORGANISM Status: Acute Comment: now on Zosyn, Azithromycin, dose of Vanc given (8) Renal mass Code(s): N28.89 - OTHER SPECIFIED DISORDERS OF KIDNEY AND URETER Status: Acute (9) Anxiety and depression Code(s): F41.9 - ANXIETY DISORDER, UNSPECIFIED; F32.9 - MAJOR DEPRESSIVE DISORDER, SINGLE EPISODE, UNSPECIFIED Status: Chronic (10) CAD (coronary artery disease) Code(s): I25.10 - ATHSCL HEART DISEASE OF [place] CORONARY ARTERY W/O ANG PCTRS Status: Chronic Comment: stable (11) Dyslipidemia Code(s): E78.5 - HYPERLIPIDEMIA, UNSPECIFIED Status: Chronic (12) Hypertension Code(s): I10 - ESSENTIAL (PRIMARY) HYPERTENSION Status: Chronic Comment: monitor vital signs, titrate antihypertensives as needed (13) Low back pain Code(s): M54.5 - LOW BACK PAIN Status: Chronic (14) PAD (peripheral artery disease) Code(s): I73.9 - PERIPHERAL VASCULAR DISEASE, UNSPECIFIED Status: Chronic - Plan Continue supportive care. Continue antibiotic, bronchodilators and steroid. -: Wean oxygen as tolerated -: pain medications adjusted to get better pain control. -: If BP remained high after adequate pain control, we will start antihypensiv * .
[2018-11-02] MEDS: Gabapentin 300 MG CAP PO SCH ×2 (14:21→20:06)
[2018-11-02] MEDS: Lidocaine 5% Patch TD SCH (14:21)
--- NOTE | 2018-11-02 16:24 | PRG ---
DATE OF SERVICE: 11/02/2018 SERVICE: Pulmonary Medicine. SUBJECTIVE: The patient is actually breathing quite well. Denies any current chest pain, fevers, or chills. He has not had any respiratory events. He does not bring up any sputum, even with physiotherapy. He actually does not feel like he has anything down any longer. PHYSICAL EXAMINATION: VITAL SIGNS: Afebrile, pulse 69, blood pressure 173/95, respirations 20, saturation 95% on room air this morning. HEENT: Normocephalic and atraumatic. Sclerae white. Conjunctivae pink. Oral mucosa is moist without lesions. LUNGS: Decent air entry. There is a slightly prolonged expiratory phase, but no significant wheezing. Rhonchi are present, but clear with cough. HEART: Normal rate, regular. ABDOMEN: Soft, nontender, and nondistended. Bowel sounds are positive. MUSCULOSKELETAL: No cyanosis or clubbing. There is no pitting in the bilateral lower extremities. NEUROLOGIC: Grossly nonfocal. IMAGING: Echocardiogram shows a normal ejection fraction, elevated right ventricular systolic pressures consistent with severe pulmonary hypertension, and dilated IVC. ASSESSMENT: 1. Acute hypoxic respiratory failure, resolved. 2. Chronic obstructive pulmonary disease with acute exacerbation. 3. Non-small cell lung cancer, suspected. 4. Mediastinal lymphadenopathy with positive R10 for malignancy. 5. Urinary retention. 6. Pulmonary hypertension, etiology unclear. DISCUSSION AND PLAN: We will transition the patient out of the ICU to the medical unit. Physiotherapy will be interrupted. We will continue his antibiotics, nebulized medications, and steroids. We are awaiting additional guidance from Oncology. We will continue our mobilization efforts. If the patient's functional status improves through time, we will consider a workup for pulmonary hypertension in the outpatient setting. Job ID: [id number] MTDD
[2018-11-02] MEDS: Tamsulosin HCl 0.4 MG CAP PO SCH (20:06)
[2018-11-02] MEDS ORDERED: Lidocaine Patch Removal 1 EACH TOP SCH (21:00)
[2018-11-03] MEDS: Morphine 4 MG/ML VIAL SLOW IVP PRN ×5 (00:04→18:34)
[2018-11-03] MEDS: Lidocaine Patch Removal 1 EACH TOP SCH (02:16)
[2018-11-03] MEDS: HYDROcodone/Acetaminophen 5/325 mg Tablet PO PRN ×5 (02:16→20:43)
[2018-11-03] MEDS: Albuterol Sulfate 2.5 mg/3 ml Neb NEB SCH ×6 (02:26→22:35)
[2018-11-03] MEDS: Piperacillin/Tazobactam 4.5 GM in Sodium Chloride 0.9% 100 ML IVPB SCH ×2 (04:31→12:04)
[2018-11-03] MEDS: predniSONE 20 MG TAB PO SCH (08:17)
[2018-11-03] MEDS: Fenofibrate Nanocrystallized 145 MG TAB PO SCH (08:18)
[2018-11-03] MEDS: guaiFENesin ER 600 MG TAB PO SCH ×2 (08:19→20:43)
[2018-11-03] MEDS: Gabapentin 300 MG CAP PO SCH ×3 (08:19→20:43)
[2018-11-03] MEDS: Atenolol 25 MG TAB PO SCH (08:19)
[2018-11-03] MEDS: Lisinopril 10 MG TAB PO SCH (08:19)
[2018-11-03] MEDS: Aspirin 81 mg Enteric Coated Tablet PO SCH (08:20)
[2018-11-03] MEDS: hydrALAZINE 20 MG/ML VIAL SLOW IVP PRN (08:20)
[2018-11-03 10:14] LABS: Fungus Stain Final report (.)
[2018-11-03] MEDS: Lidocaine 5% Patch TD SCH (14:41)
--- NOTE | 2018-11-03 16:53 | PDOC.PN ---
- Subjective Encounter Start Date: 11/03/18 Encounter Start Time: 16:51 Subjective: No new problem -: Reported exertional dyspnea. -: no chest pain. - Objective Resuscitation Status - Order Detail: 10/25/18 23:44 Resuscitation Status Routine Resuscitation Status: FULL: Full Resuscitation Vital Signs & Weight: Vital Signs (12 hours) Temp Pulse Resp BP BP BP Pulse Ox 11/03/18 15:55 98.2 F 74 20 150/72 H 94 L 11/03/18 14:03 78 18 92 L 11/03/18 11:45 98.0 F 73 20 150/70 H 94 L 11/03/18 10:50 67 18 95 11/03/18 08:20 70 192/87 H 11/03/18 08:19 70 192/87 H 11/03/18 08:00 93 L 11/03/18 07:55 97.6 F 71 20 185/83 H 93 L 11/03/18 07:04 86 16 94 L Weight Weight 180 lb 14.4 oz Most Recent Monitor Data Heart Rate from ECG 59 NIBP 169/83 NIBP BP-Mean 111 Respiration from ECG 19 SpO2 100 I&O: 11/02/18 11/03/18 11/04/18 06:59 06:59 06:59 Intake Total 1721 1080 Output Total 2850 1350 Balance -1129 -270 Result Diagrams: 11/01/18 04:34 11/01/18 04:34 Phys Exam - Physical Examination Constitutional: NAD afebrile, anicteric. HEENT: PERRLA, moist MMs Neck: supple fair air entry with some transmitted sound Cardiovascular: RRR Gastrointestinal: soft, non-tender, no distention, positive bowel sounds Musculoskeletal: no edema, pulses present Neurological: non-focal, moves all 4 limbs Psychiatric: normal affect, A&O x 3 Dx/Plan (1) Malignant neoplasm of right lung Code(s): C34.91 - MALIGNANT NEOPLASM OF UNSP PART OF RIGHT BRONCHUS OR LUNG Status: Acute (2) COPD exacerbation Code(s): J44.1 - CHRONIC OBSTRUCTIVE PULMONARY DISEASE W (ACUTE) EXACERBATION Status: Acute (3) Acute respiratory failure with hypoxemia Code(s): J96.01 - ACUTE RESPIRATORY FAILURE WITH HYPOXIA Status: Acute Comment: Improved. Off BIPAP. Still on oxygen. (4) Acute urinary retention Code(s): R33.8 - OTHER RETENTION OF URINE Status: Acute Comment: likely due to BPH flaired by Ipratropium, davison in place (5) Liver metastases Code(s): C78.7 - SECONDARY MALIG NEOPLASM OF LIVER AND INTRAHEPATIC BILE DUCT Status: Acute (6) Mass of upper lobe of right lung Code(s): R91.8 - OTHER NONSPECIFIC ABNORMAL FINDING OF LUNG FIELD Status: Acute Comment: likely non-small cell lung cancer (7) Postobstructive pneumonia Code(s): J18.9 - PNEUMONIA, UNSPECIFIED ORGANISM Status: Acute Comment: now on Zosyn, Azithromycin, dose of Vanc given (8) Renal mass Code(s): N28.89 - OTHER SPECIFIED DISORDERS OF KIDNEY AND URETER Status: Acute (9) Anxiety and depression Code(s): F41.9 - ANXIETY DISORDER, UNSPECIFIED; F32.9 - MAJOR DEPRESSIVE DISORDER, SINGLE EPISODE, UNSPECIFIED Status: Chronic (10) CAD (coronary artery disease) Code(s): I25.10 - ATHSCL HEART DISEASE OF [place] CORONARY ARTERY W/O ANG PCTRS Status: Chronic Comment: stable (11) Dyslipidemia Code(s): E78.5 - HYPERLIPIDEMIA, UNSPECIFIED Status: Chronic (12) Hypertension Code(s): I10 - ESSENTIAL (PRIMARY) HYPERTENSION Status: Chronic Comment: monitor vital signs, titrate antihypertensives as needed (13) Low back pain Code(s): M54.5 - LOW BACK PAIN Status: Chronic (14) PAD (peripheral artery disease) Code(s): I73.9 - PERIPHERAL VASCULAR DISEASE, UNSPECIFIED Status: Chronic (15) Pulmonary HTN Code(s): I27.20 - PULMONARY HYPERTENSION, UNSPECIFIED Status: Acute (16) Mediastinal lymphadenopathy Code(s): R59.0 - LOCALIZED ENLARGED LYMPH NODES Status: Acute - Plan Transbronchial biopsy suggestive of metastatic lung cancer but sample was inadequate to complete analysis. For CT guided liver biopsy. substitute zosyn with levaquin Add finasteride to flomax for urinary retention. Wean oxygen as tolerated. Analgesis as needed. increase lisinopril to 20 mg daily to get adequate BP control Dc aspirin for planned liver biopsy * .
[2018-11-03] MEDS ORDERED: Lisinopril 10 MG TAB PO SCH (17:00)
[2018-11-03] MEDS: Tamsulosin HCl 0.4 MG CAP PO SCH (20:42)
[2018-11-04] MEDS: Albuterol Sulfate 2.5 mg/3 ml Neb NEB SCH ×6 (02:48→22:34)
[2018-11-04] MEDS: Lidocaine Patch Removal 1 EACH TOP SCH (03:02)
[2018-11-04] MEDS: HYDROcodone/Acetaminophen 5/325 mg Tablet PO PRN ×5 (03:03→21:38)
[2018-11-04 04:46] LABS: ALT (SGPT) 70 U/L (8-55); AST (SGOT) 37 U/L (5-34); Albumin 3.3 g/dL (3.4-4.8); Alkaline Phosphatase 169 U/L (40-150); Anion Gap 12 mmol/L (10-20); BUN (Urea Nitrogen) 27 mg/dL (8.4-25.7); Bilirubin, Total 0.3 mg/dL (0.2-1.2); Calc. Creatinine Clearance 85 mL/min (70-130); Calcium 9.7 mg/dL (7.8-10.44); Carbon Dioxide 28 mmol/L (23-31); Chloride 104 mmol/L (98-107); Estimated GFR-MDRD 82; Globulin 2.9 g/dL (2.4-3.5); Glucose 82 mg/dL (83-110); Potassium 4.1 mmol/L (3.5-5.1); Protein, Total 6.2 g/dL (5.8-8.1); Sodium 140 mmol/L (136-145)
[2018-11-04 04:59] LABS: Band 2 % (5-11); Eosinophils 6 % (0-10); Hemoglobin 12.1 g/dL (14.0-18.0); Lymphocytes 8 % (21-51); MDiff Complete? YES; Mean Corpuscular HGB CONC 32.1 g/dL (32.0-36.0); Mean Corpuscular Hemoglobin 29.6 pg (27.0-31.0); Mean Corpuscular Volume 92.1 fL (78.0-98.0); Mean Platelet Volume 7.4 fL (7.4-10.4); Monocytes 9 % (0-10); Neutrophil 75 % (42-75); Platelet Count 248 thou/uL (130-400); RBC Distribution Width 12.1 % (11.5-14.5); Red Blood Cell (RBC) Count 4.09 mill/uL (4.70-6.10); White Blood Cell (WBC) Count 21.1 thou/uL (4.8-10.8)
[2018-11-04 07:59] LABS: INR-International Normal Ratio 1.1; PTT 27.6 SEC (22.9-36.1); Prothrombin Time 14.5 SEC (12.0-14.7)
[2018-11-04] MEDS: predniSONE 20 MG TAB PO SCH (08:10)
[2018-11-04] MEDS: Atenolol 25 MG TAB PO SCH (08:10)
[2018-11-04] MEDS: Lisinopril 10 MG TAB PO SCH (08:12)
[2018-11-04] MEDS: Gabapentin 300 MG CAP PO SCH ×3 (08:12→21:00)
[2018-11-04] MEDS: Finasteride 5 MG TAB PO SCH (08:12)
[2018-11-04] MEDS: Fenofibrate Nanocrystallized 145 MG TAB PO SCH (08:12)
[2018-11-04] MEDS: guaiFENesin ER 600 MG TAB PO SCH ×2 (08:12→20:59)
[2018-11-04] MEDS: hydrALAZINE 20 MG/ML VIAL SLOW IVP PRN (08:13)
[2018-11-04] MEDS: Lidocaine 5% Patch TD SCH (14:33)
--- NOTE | 2018-11-04 14:47 | PDOC.PN ---
- Subjective Encounter Start Date: 11/04/18 Encounter Start Time: 14:45 Subjective: No new problem -: Still on oxygen and still complaining of back. -: Liver biopsy could not be performed due to recent ASA use - Objective Resuscitation Status - Order Detail: 10/25/18 23:44 Resuscitation Status Routine Resuscitation Status: FULL: Full Resuscitation Vital Signs & Weight: Vital Signs (12 hours) Temp Pulse Resp BP BP Pulse Ox 11/04/18 11:40 97.9 F 73 16 140/65 90 L 11/04/18 11:05 69 20 91 L 11/04/18 09:00 155/69 H 11/04/18 08:28 90 L 11/04/18 08:13 71 192/74 H 11/04/18 08:12 192/74 H 11/04/18 08:10 71 192/74 H 11/04/18 07:50 97.6 F 71 20 192/74 H 97 11/04/18 07:49 97 11/04/18 06:35 79 20 90 L 11/04/18 04:00 97.6 F 81 18 151/72 H 97 Weight Weight 180 lb 14.4 oz Most Recent Monitor Data Heart Rate from ECG 59 NIBP 169/83 NIBP BP-Mean 111 Respiration from ECG 19 SpO2 100 I&O: 11/03/18 11/04/18 11/05/18 06:59 06:59 06:59 Intake Total 1080 1160 Output Total 1350 1300 Balance -270 -140 Result Diagrams: 11/04/18 04:13 11/04/18 04:13 Phys Exam - Physical Examination Constitutional: NAD HEENT: PERRLA, moist MMs Neck: no JVD, supple fair air entry bilaterally with some transmitted sound Cardiovascular: RRR Gastrointestinal: soft, non-tender, no distention, positive bowel sounds Musculoskeletal: no edema, pulses present Neurological: non-focal, moves all 4 limbs Psychiatric: A&O x 3 Dx/Plan (1) Malignant neoplasm of right lung Code(s): C34.91 - MALIGNANT NEOPLASM OF UNSP PART OF RIGHT BRONCHUS OR LUNG Status: Acute Comment: S/p transbronchial biopsy. Sample inadequate to do analysis. Hence liver biopsy planned. (2) COPD exacerbation Code(s): J44.1 - CHRONIC OBSTRUCTIVE PULMONARY DISEASE W (ACUTE) EXACERBATION Status: Acute (3) Acute respiratory failure with hypoxemia Code(s): J96.01 - ACUTE RESPIRATORY FAILURE WITH HYPOXIA Status: Acute Comment: Improved. Off BIPAP. Still on oxygen. (4) Acute urinary retention Code(s): R33.8 - OTHER RETENTION OF URINE Status: Acute Comment: likely due to BPH flaired by Ipratropium, davison in place (5) Liver metastases Code(s): C78.7 - SECONDARY MALIG NEOPLASM OF LIVER AND INTRAHEPATIC BILE DUCT Status: Acute (6) Mass of upper lobe of right lung Code(s): R91.8 - OTHER NONSPECIFIC ABNORMAL FINDING OF LUNG FIELD Status: Acute Comment: likely non-small cell lung cancer (7) Postobstructive pneumonia Code(s): J18.9 - PNEUMONIA, UNSPECIFIED ORGANISM Status: Acute Comment: now on Zosyn, Azithromycin, dose of Vanc given (8) Renal mass Code(s): N28.89 - OTHER SPECIFIED DISORDERS OF KIDNEY AND URETER Status: Acute (9) Anxiety and depression Code(s): F41.9 - ANXIETY DISORDER, UNSPECIFIED; F32.9 - MAJOR DEPRESSIVE DISORDER, SINGLE EPISODE, UNSPECIFIED Status: Chronic (10) CAD (coronary artery disease) Code(s): I25.10 - ATHSCL HEART DISEASE OF [place] CORONARY ARTERY W/O ANG PCTRS Status: Chronic Comment: stable (11) Dyslipidemia Code(s): E78.5 - HYPERLIPIDEMIA, UNSPECIFIED Status: Chronic (12) Hypertension Code(s): I10 - ESSENTIAL (PRIMARY) HYPERTENSION Status: Chronic Comment: monitor vital signs, titrate antihypertensives as needed (13) Low back pain Code(s): M54.5 - LOW BACK PAIN Status: Chronic (14) PAD (peripheral artery disease) Code(s): I73.9 - PERIPHERAL VASCULAR DISEASE, UNSPECIFIED Status: Chronic (15) Pulmonary HTN Code(s): I27.20 - PULMONARY HYPERTENSION, UNSPECIFIED Status: Acute (16) Mediastinal lymphadenopathy Code(s): R59.0 - LOCALIZED ENLARGED LYMPH NODES Status: Acute (17) Abnormal LFTs (liver function tests) Code(s): R94.5 - ABNORMAL RESULTS OF LIVER FUNCTION STUDIES Status: Acute - Plan DVT proph w/heparin Continue current treatments. -: Do voiding trail if cleared by Urology -: Monitor LFT * .
--- NOTE | 2018-11-04 18:26 | PRG ---
DATE OF SERVICE: 11/04/2018 SERVICE: Pulmonary Medicine. INTERVAL HISTORY: The patient is doing okay from respiratory standpoint. He continues to have coughing from time to time. If he coughs hard, he break and bring up a small amount of sputum, which helps his breathing. He has been weaned down to room air. I woke him up from sleep. He does not have any significant dyspnea. He denies any current fevers or chills. He feels that once he gets home, he will be able to mobilize a little bit easier. He is hoping to get the [place] catheter out in the morning. PHYSICAL EXAMINATION: VITAL SIGNS: Afebrile, pulse 72, blood pressure 137/62, respirations 18, and saturation 93% on room air. GENERAL: The patient is awake and alert, in no apparent distress. LUNGS: Rhonchi are present. There is a slightly prolonged expiratory phase. I do not appreciate any wheezing. Crackles are not present. HEART: Normal rate and regular. ABDOMEN: Soft, nontender, and nondistended. Bowel sounds are positive. MUSCULOSKELETAL: No cyanosis or clubbing. There is no pitting in the bilateral lower extremities. NEUROLOGIC: Grossly nonfocal. LABORATORY DATA: WBC 21.1, hemoglobin 12.1, and platelets 248,000. Creatinine 0.91. Basic metabolic profile is otherwise unremarkable. AST 37, ALT 70, alk phos 169 and gently up-trending. Total bilirubin remains low. Urine cultures negative x2, AFB smear and culture are negative to date. Respiratory culture is unremarkable from the BAL. ASSESSMENT: 1. Acute on chronic hypoxic respiratory failure, improving. 2. Chronic obstructive pulmonary disease with acute exacerbation, resolved. 3. Non-small cell lung cancer, suspected though special stains are inconclusive. 4. Mediastinal lymphadenopathy with malignancy identified in R10. 5. Urinary retention, possibly secondary to ipratropium. 6. Pulmonary hypertension, likely multifactorial. DISCUSSION AND PLAN: At this point, the patient is stabilized as best as he is going to in the short term. Liver biopsy is going to be performed in the outpatient setting as the patient was on aspirin. He has completed his course of antibiotics and steroids. If he remains in-house, I will continue to follow. However, if he is doing well until tomorrow, we can consider him for transition home. He will have a very high risk of returning to the emergency department. Job ID: [id number] [email or web address]
[2018-11-04] MEDS: Tamsulosin HCl 0.4 MG CAP PO SCH (21:00)
[2018-11-04] MEDS: ALPRAZolam 0.5 MG TAB PO PRN (21:01)
[2018-11-04] MEDS ORDERED: Phenazopyridine HCl 97.5 MG TABLET ONE (23:01)
[2018-11-05] MEDS: Albuterol Sulfate 2.5 mg/3 ml Neb NEB SCH ×4 (01:52→15:51)
[2018-11-05] MEDS: HYDROcodone/Acetaminophen 5/325 mg Tablet PO PRN ×4 (02:11→15:03)
[2018-11-05] MEDS: Lidocaine Patch Removal 1 EACH TOP SCH (02:12)
[2018-11-05 07:09] LABS: #Eosinphils 1.9 thou/uL (0.0-0.7); #Lymphocytes 1.8 thou/uL (1.20-3.40); #Neutrophils 15.7 thou/uL (1.40-6.50); %Basophils 0.1 % (0.0-1.0); %Eosinophils 9.1 % (0.0-10.0); %Lymphocytes 8.6 % (21.0-51.0); %Monocytes 9.1 % (0.0-10.0); %Neutrophils 73.1 % (42.0-75.0); Hemoglobin 12.3 g/dL (14.0-18.0); Mean Corpuscular HGB CONC 31.8 g/dL (32.0-36.0); Mean Corpuscular Hemoglobin 29.1 pg (27.0-31.0); Mean Corpuscular Volume 91.5 fL (78.0-98.0); Mean Platelet Volume 7.3 fL (7.4-10.4); Platelet Count 211 thou/uL (130-400); RBC Distribution Width 12.1 % (11.5-14.5); Red Blood Cell (RBC) Count 4.23 mill/uL (4.70-6.10); White Blood Cell (WBC) Count 21.4 thou/uL (4.8-10.8)
[2018-11-05 07:31] LABS: ALT (SGPT) 73 U/L (8-55); AST (SGOT) 36 U/L (5-34); Albumin 3.4 g/dL (3.4-4.8); Alkaline Phosphatase 170 U/L (40-150); Anion Gap 13 mmol/L (10-20); BUN (Urea Nitrogen) 23 mg/dL (8.4-25.7); Bilirubin, Total 0.4 mg/dL (0.2-1.2); Calc. Creatinine Clearance 96 mL/min (70-130); Calcium 9.4 mg/dL (7.8-10.44); Carbon Dioxide 26 mmol/L (23-31); Chloride 101 mmol/L (98-107); Estimated GFR-MDRD Greater than 90; Glucose 100 mg/dL (83-110); Potassium 4.1 mmol/L (3.5-5.1); Protein, Total 6.4 g/dL (5.8-8.1); Sodium 136 mmol/L (136-145)
--- NOTE | 2018-11-05 08:35 | PDOC.PN ---
- Subjective Encounter Start Date: 11/05/18 Encounter Start Time: 08:33 Subjective: Seen and examined. -: SpO2 dropped to 86% on discontinuation of oxygen. -: Restarted on 2lpm with improvement to 93% - Objective Resuscitation Status - Order Detail: 10/25/18 23:44 Resuscitation Status Routine Resuscitation Status: FULL: Full Resuscitation Vital Signs & Weight: Vital Signs (12 hours) Temp Pulse Resp BP Pulse Ox 11/05/18 07:30 72 20 93 L 11/05/18 07:29 93 L 11/05/18 01:52 77 20 97 11/05/18 00:00 97.3 F L 72 18 136/65 96 11/04/18 22:34 70 18 91 L Weight Weight 180 lb 14.4 oz Most Recent Monitor Data Heart Rate from ECG 59 NIBP 169/83 NIBP BP-Mean 111 Respiration from ECG 19 SpO2 100 I&O: 11/04/18 11/05/18 11/06/18 06:59 06:59 06:59 Intake Total 1160 700 Output Total 1300 1350 Balance -140 -650 Result Diagrams: 11/05/18 06:54 11/05/18 06:54 Phys Exam - Physical Examination Constitutional: NAD HEENT: PERRLA, moist MMs Neck: supple fair air entry bilaterally with transmitted sound and few rhonchi Cardiovascular: RRR Gastrointestinal: soft, no distention Musculoskeletal: no edema, pulses present Neurological: non-focal, moves all 4 limbs Psychiatric: A&O x 3 Dx/Plan (1) Malignant neoplasm of right lung Code(s): C34.91 - MALIGNANT NEOPLASM OF UNSP PART OF RIGHT BRONCHUS OR LUNG Status: Acute Comment: S/p transbronchial biopsy. Sample inadequate to do analysis. Hence liver biopsy planned. (2) COPD exacerbation Code(s): J44.1 - CHRONIC OBSTRUCTIVE PULMONARY DISEASE W (ACUTE) EXACERBATION Status: Acute (3) Acute respiratory failure with hypoxemia Code(s): J96.01 - ACUTE RESPIRATORY FAILURE WITH HYPOXIA Status: Acute Comment: Improved. Off BIPAP. Still on oxygen. (4) Acute urinary retention Code(s): R33.8 - OTHER RETENTION OF URINE Status: Acute Comment: likely due to BPH flaired by Ipratropium, davison in place (5) Liver metastases Code(s): C78.7 - SECONDARY MALIG NEOPLASM OF LIVER AND INTRAHEPATIC BILE DUCT Status: Acute (6) Mass of upper lobe of right lung Code(s): R91.8 - OTHER NONSPECIFIC ABNORMAL FINDING OF LUNG FIELD Status: Acute Comment: likely non-small cell lung cancer (7) Postobstructive pneumonia Code(s): J18.9 - PNEUMONIA, UNSPECIFIED ORGANISM Status: Acute Comment: On levaquin (8) Renal mass Code(s): N28.89 - OTHER SPECIFIED DISORDERS OF KIDNEY AND URETER Status: Acute (9) Anxiety and depression Code(s): F41.9 - ANXIETY DISORDER, UNSPECIFIED; F32.9 - MAJOR DEPRESSIVE DISORDER, SINGLE EPISODE, UNSPECIFIED Status: Chronic (10) CAD (coronary artery disease) Code(s): I25.10 - ATHSCL HEART DISEASE OF [place] CORONARY ARTERY W/O ANG PCTRS Status: Chronic Comment: stable (11) Dyslipidemia Code(s): E78.5 - HYPERLIPIDEMIA, UNSPECIFIED Status: Chronic (12) Hypertension Code(s): I10 - ESSENTIAL (PRIMARY) HYPERTENSION Status: Chronic Comment: monitor vital signs, titrate antihypertensives as needed (13) Low back pain Code(s): M54.5 - LOW BACK PAIN Status: Chronic (14) PAD (peripheral artery disease) Code(s): I73.9 - PERIPHERAL VASCULAR DISEASE, UNSPECIFIED Status: Chronic (15) Pulmonary HTN Code(s): I27.20 - PULMONARY HYPERTENSION, UNSPECIFIED Status: Acute (16) Mediastinal lymphadenopathy Code(s): R59.0 - LOCALIZED ENLARGED LYMPH NODES Status: Acute (17) Abnormal LFTs (liver function tests) Code(s): R94.5 - ABNORMAL RESULTS OF LIVER FUNCTION STUDIES Status: Acute - Plan Derick discharge today. -: He will need continous oxygen therapy. -: case mgt consulted to help with arrangement -: Will be discharged once home oxygen is arranged. * .
[2018-11-05 09:11] VITALS: TEMP 96.3
[2018-11-05] MEDS: Gabapentin 300 MG CAP PO SCH (09:14)
[2018-11-05] MEDS: Lisinopril 10 MG TAB PO SCH (09:14)
[2018-11-05] MEDS: Finasteride 5 MG TAB PO SCH (09:15)
[2018-11-05] MEDS: Atenolol 25 MG TAB PO SCH (09:15)
[2018-11-05] MEDS: Fenofibrate Nanocrystallized 145 MG TAB PO SCH (09:15)
[2018-11-05] MEDS: guaiFENesin ER 600 MG TAB PO SCH (09:15)
[2018-11-05 09:24] VITALS: BP 192/74
[2018-11-05] MEDS: Lidocaine 5% Patch TD SCH (15:04)
== END 2018-11-05 17:45 | disposition home or self-care (01) | DRG 166 ==
LOC: ERS 19:35 → INTOOBSV 23:53 → T4-A 23:53 → OBSVTOIN 10-27 08:59 → IMCU/EMU 10-30 01:41 → ONC 11-02 23:54
PROVIDERS: ADMIT Internal Medicine; ATTEND Internal Medicine
PROC: 0BBC8ZX Excision of Right Upper Lung Lobe, Via Natural or Artificial Opening Endoscopic, Diagnostic (ICD-10-PCS; principal; 2018-10-27)
PROC: 07D78ZX Extraction of Thorax Lymphatic, Via Natural or Artificial Opening Endoscopic, Diagnostic (ICD-10-PCS; 2018-10-27)
PROC: 0B9C8ZX Drainage of Right Upper Lung Lobe, Via Natural or Artificial Opening Endoscopic, Diagnostic (ICD-10-PCS; 2018-10-27)
PROC: 0BD48ZX Extraction of Right Upper Lobe Bronchus, Via Natural or Artificial Opening Endoscopic, Diagnostic (ICD-10-PCS; 2018-10-27)
PROC: 5A09357 Assistance with Respiratory Ventilation, Less than 24 Consecutive Hours, Continuous Positive Airway Pressure (ICD-10-PCS; 2018-10-31)
DX: C34.11 Malignant neoplasm of upper lobe, right bronchus or lung (principal); J18.8 Other pneumonia, unspecified organism; J96.01 Acute respiratory failure with hypoxia; C77.1 Secondary and unspecified malignant neoplasm of intrathoracic lymph nodes; C78.7 Secondary malignant neoplasm of liver and intrahepatic bile duct; J44.1 Chronic obstructive pulmonary disease with (acute) exacerbation; J44.0 Chronic obstructive pulmonary disease with (acute) lower respiratory infection; I27.20 Pulmonary hypertension, unspecified; I25.10 Atherosclerotic heart disease of native coronary artery without angina pectoris; I73.9 Peripheral vascular disease, unspecified; I10 Essential (primary) hypertension; N40.1 Benign prostatic hyperplasia with lower urinary tract symptoms; M54.5 Low back pain; N28.9 Disorder of kidney and ureter, unspecified; R63.4 Abnormal weight loss; E78.5 Hyperlipidemia, unspecified; R33.9 Retention of urine, unspecified; K59.00 Constipation, unspecified; G47.33 Obstructive sleep apnea (adult) (pediatric); F41.8 Other specified anxiety disorders; Z87.891 Personal history of nicotine dependence; Z95.820 Peripheral vascular angioplasty status with implants and grafts; Z68.25 Body mass index [BMI] 25.0-25.9, adult; Z79.82 Long term (current) use of aspirin
CPT/HCPCS: 36415; 71045; 71275; 72220; 74177; 80048; 80053; 81003; 81015; 82550; 82805; 83735; 83880; 84484; 85025; 85060; 85379; 85610; 85730; 87070; 87086; 87102; 87116; 87205; 87206; 88104; 88112; 88172; 88173; 88177; 88305; 88341; 88342; 88360; 89051; 93005; 93306; 94640; 94660; 94667; 94668; 96365; 96367; 96375; J0171; J0360; J0456; J0696; J1100; J1940; J2001; J2250; J2270; J2405; J2543; J2704; J2920; J2930; J3010; J3370; J3490; J7050; J7512; J7611; J7620; Q9966

== ENCOUNTER 2018-11-10 17:57 | Inpatient (IN) | payer MEDICARE, BC ==
[2018-11-10] MEDS ORDERED: HYDROcodone/Acetaminophen 10/325 mg Tablet PO PRN (18:27)
[2018-11-10] MEDS: Morphine 2 MG/ML SYRINGE SLOW IVP PRN ×2 (19:00→23:36)
[2018-11-10] MEDS: HYDROcodone/Acetaminophen 10/325 mg Tablet PO PRN (20:53)
[2018-11-11] MEDS: Morphine 2 MG/ML SYRINGE SLOW IVP PRN ×4 (01:24→08:31)
[2018-11-11] MEDS: HYDROcodone/Acetaminophen 10/325 mg Tablet PO PRN (03:21)
[2018-11-11] MEDS ORDERED: HYDROcodone/Acetaminophen 5/325 mg Tablet PO PRN ×3 (03:23→03:44)
[2018-11-11] MEDS ORDERED: Ondansetron ODT 4 MG TAB SL PRN (03:23)
--- NOTE | 2018-11-11 04:14 | HP ---
PRIMARY CARE PHYSICIAN: Isaac Almodovar MD CODE STATUS: DNR/DNI as discussed with the patient. HISTORY OF PRESENT ILLNESS: This is a 73-year-old male patient with past medical history of hypertension, PVD, coronary artery disease, high cholesterol, came to the hospital after having generalized weakness, right rib pain with some diffuse abdominal tenderness with no clear triggers, no alleviating factors, all reported as moderate, symptoms started for the past few days. The patient was found to have reportedly small cell lung cancer with metastasis to the liver. There is a plan to get biopsy done in the morning. Dr. Guido is following this patient who will be consulted and we will follow recommendations. REVIEW OF SYSTEMS: CONSTITUTIONAL: No fever or chills. The patient has severe generalized weakness. RESPIRATORY: No cough, sputum production, or shortness of breath. CARDIOVASCULAR: No chest pain or palpitation. GASTROINTESTINAL: The patient has nausea. No vomiting. No diarrhea. The patient has diffuse abdominal pain. [employer]: No dizziness, headache, or feeling lightheaded. GENITOURINARY: No burning on urination. EXTREMITIES: No leg swelling. All other systems were reviewed and negative except for the findings mentioned above. PAST MEDICAL HISTORY: As mentioned in the HPI. FAMILY HISTORY: Reviewed and noncontributory for current presentation. PAST SURGICAL HISTORY: Positive for PVD, stent placement in bilateral lower extremities. ALLERGIES: NO KNOWN DRUG ALLERGIES. SOCIAL HISTORY: The patient drinks everyday, a minimum 5 drinks per day. Former tobacco user. Quit 10 years ago. Lives at home with . REPORTED MEDICATIONS: 1. Crestor. 2. Sertraline. 3. Lisinopril. 4. Atenolol. 5. Aspirin 81. 6. Vascepa. 7. Fenofibrate. PHYSICAL EXAMINATION: VITAL SIGNS: On presentation were within normal limits. GENERAL APPEARANCE: The patient is alert, oriented, not in acute distress. HEENT: Eyes, normal conjunctivae. Moist oral mucosa. Anicteric. No JVD. RESPIRATORY: Bilateral air entry. No rales. No wheezes. Symmetric expansion. CARDIOVASCULAR: Normal rate and regular rhythm. No murmurs. No gallop. No edema. ABDOMEN: The patient has diffuse tenderness, mostly on right upper quadrant with normal bowel sounds. MUSCULOSKELETAL: Baseline range of motion and strength. No tenderness. SKIN: Warm, intact. No pallor. No rash. No redness. Peripheral pulses are present. Capillary refill seems to intact. NEUROLOGIC: No evidence of any new focal weakness. Baseline speech. Cranial nerves seems to be intact. PSYCHIATRIC: The patient is in good mood. No anxiety. Optimal judgment. LABORATORY DATA: Labs are pending. ASSESSMENT AND PLAN: The patient will be placed in the hospital with following medical problems: 1. Metastatic small cell carcinoma being followed by Dr. Guido, who has sent the patient to the hospital. The patient to receive biopsy in the morning. We will follow recommendations from Oncology for any further planning and management. 2. Control high blood pressure. We will reconcile home medications. We will adjust treatment as needed. 3. History of peripheral vascular disease. Reconcile home medications. 4. Deep venous thrombosis prophylaxis. Job ID: [id number]
[2018-11-11 04:53] LABS: Anion Gap 15 mmol/L (10-20); BUN (Urea Nitrogen) 30 mg/dL (8.4-25.7); Calc. Creatinine Clearance 0 mL/min (70-130); Calcium 10.1 mg/dL (7.8-10.44); Carbon Dioxide 28 mmol/L (23-31); Chloride 100 mmol/L (98-107); Estimated GFR-MDRD 90; Glucose 122 mg/dL (83-110); Potassium 3.7 mmol/L (3.5-5.1); Sodium 139 mmol/L (136-145)
[2018-11-11 04:54] LABS: Band 6 % (5-11); Hemoglobin 11.9 g/dL (14.0-18.0); Hypochromia SLIGHT = 6-15 cells (100X) (0-5/hpf); Lymphocytes 1 % (21-51); MDiff Complete? YES; Mean Corpuscular Hemoglobin 28.9 pg (27.0-31.0); Mean Corpuscular Volume 90.3 fL (78.0-98.0); Monocytes 5 % (0-10); Neutrophil 88 % (42-75); Platelet Count 126 thou/uL (130-400); Platelet Morphology Comment Appears Adequate; RBC Distribution Width 12.3 % (11.5-14.5); Red Blood Cell (RBC) Count 4.11 mill/uL (4.70-6.10); White Blood Cell (WBC) Count 25.2 thou/uL (4.8-10.8)
[2018-11-11] MEDS ORDERED: HYDROcodone/Acetaminophen 10/325 mg Tablet PO PRN (08:26)
[2018-11-11] MEDS: Morphine ER 15 MG TAB PO SCH ×2 (08:42→20:41)
[2018-11-11] MEDS ORDERED: Non-Formulary Item 1 EACH (Fenofibrate [Fenofibrate] 1 TAB) PO SCH (09:00)
[2018-11-11] MEDS ORDERED: Midazolam HCl 2 mg/2 ml Vial ONE (10:30)
[2018-11-11] MEDS ORDERED: Sodium Chloride 0.9% 10 ML ONE (10:31)
[2018-11-11] MEDS ORDERED: Fentanyl 100 MCG/2 ML VIAL ONE (10:31)
[2018-11-11 10:41] VITALS: BMI 24.7
[2018-11-11] MEDS ORDERED: Sodium Bicarbonate 2.5 MEQ/5 ML VIAL ONE (10:49)
[2018-11-11] MEDS: Rosuvastatin 20 MG TAB PO SCH (11:36)
[2018-11-11] MEDS: Lisinopril 20 MG TAB PO SCH (11:36)
[2018-11-11] MEDS: Finasteride 5 MG TAB PO SCH (11:37)
[2018-11-11] MEDS: Atenolol 25 MG TAB PO SCH (11:37)
[2018-11-11] MEDS: guaiFENesin ER 600 MG TAB PO SCH ×2 (11:37→20:40)
[2018-11-11] MEDS: Gabapentin 300 MG CAP PO SCH ×3 (11:37→20:42)
[2018-11-11] MEDS: Fenofibrate Nanocrystallized 145 MG TAB PO SCH (11:37)
[2018-11-11] MEDS: Morphine IR Tab 15 MG TAB PO PRN ×2 (11:44→20:42)
--- NOTE | 2018-11-11 13:36 | PDOC.EVN ---
Event Note - Event Note Event Note: Doing ok. Had biopsy. Pain well managed. Daily BM's. Anticipate discharge tomorrow. Persistent rhonci right side and subtle on left.
--- NOTE | 2018-11-11 14:07 | CT ---
CT-guided right liver mass biopsy Conscious sedation: Approximately 40 minutes were spent with the patient for conscious sedation. HISTORY: Lung cancer. Large liver mass. FINDINGS: After explaining the procedure and answering all questions, Limited CT imaging was performe d. Sterile technique, buffered local anesthesia, conscious sedation, CT guidance, and a right lateral approach were used to carefully advanced the tip of a 17-gauge trocar needle into the hypoden se right liver lobe mass. Position was confirmed with CT. A total of 3 18-gauge core biopsy specimens were obtained and submitted to Dr. Rosales from pathology fo r evaluation to confirm specimen adequacy. Needle was removed. Postprocedure images show no evidence of complication. Patient tolerated the proc edure well and was returned in unchanged condition. IMPRESSION: Technically successful sonographic guided right liver lobe mass biopsy. Pathology is pend ing.
--- NOTE | 2018-11-11 16:48 | CON ---
DATE OF CONSULTATION: REASON FOR CONSULTATION: Metastatic ktz-gxebt-jmzu lung cancer. HISTORY OF PRESENT ILLNESS: Mr. Dennis is a 73-year-old male, who was recently diagnosed with right lung mvj-fdfhc-jnfb lung cancer. He had bronchoscopy diagnostics, which confirmed qlm-[id number]. There was not enough tissue for molecular testing. He was scheduled for an outpatient liver biopsy this week. He presented to our clinic yesterday to establish care with Dr. Guido. He had gotten much weaker since returning home with more shortness of breath. His pain was poorly controlled. He had a productive cough and poor appetite. He was admitted to this facility for better pain control and IV hydration. PAST MEDICAL HISTORY: 1. Newly diagnosed jxj-hjitf-fvjf lung cancer. 2. Hypertension. 3. Peripheral vascular disease. 4. Coronary artery disease. 5. Hyperlipidemia. 6. COPD. 7. Anxiety and depression. 8. Hemorrhoids. PAST SURGICAL HISTORY: 1. Bronchoscopy. 2. Appendectomy. 3. Cardiac stent. 4. Peripheral stents. ALLERGIES: NO KNOWN DRUG ALLERGIES. HOME MEDICATIONS: 1. [place] p.r.n. 2. Flomax daily. 3. Lisinopril 20 mg daily. 4. Gabapentin 300 mg t.i.d. 5. Proscar 5 mg daily. 6. Zoloft 100 mg daily. 7. Rosuvastatin daily. 8. Fenofibrate 160 mg daily. 9. Atenolol daily. FAMILY HISTORY: Father had small-cell lung cancer. Aunt had breast cancer. SOCIAL HISTORY: , has two children. He is a former smoker with a 53-bnsa-lifo history of smoking, daily alcohol use. REVIEW OF SYSTEMS: GENERAL: Positive for fatigue, weakness, loss of appetite, weight loss. EYES: No blurred or double vision. ENT: No pain, hoarseness, sore throat, or dysphagia. CV: No chest pain, palpitations, or syncope. RESPIRATORY: Positive for shortness of breath, dyspnea on exertion, cough. GI: Positive for abdominal pain, diarrhea, and constipation. : No dysuria or hematuria. MUSCULOSKELETAL: Positive for back pain. SKIN: No rash or pruritus. HEMATOLOGICAL: No bruising, bleeding, or clotting. NEUROLOGICAL: Positive for weakness, headache, numbness, tingling, and dizziness. PSYCH: Positive for anxiety, depression, and insomnia. PHYSICAL EXAMINATION: VITAL SIGNS: Temperature is 98.8, pulse is 76, respiratory rate 20, blood pressure is 156/69. He is 94% on 3 L. GENERAL: This is an ill-appearing male, in no acute distress. HEENT: He is normocephalic, atraumatic. Pupils are equal and reactive to light. NECK: Supple. CV: Regular rate and rhythm. LUNGS: He has coarse rhonchi throughout. ABDOMEN: He has mild tenderness in the right upper quadrant. EXTREMITIES: No clubbing, cyanosis, or edema. SKIN: No rash. HEMATOLOGICAL: No petechiae or purpura. NEUROLOGICAL: Nonfocal. PSYCH: The patient is alert, oriented, and appropriate. PERTINENT LABORATORY DATA AND X-RAYS: Current WBCs are 25.2, hemoglobin 11.9, hematocrit 37.1, platelet count 126,000, 88% neutrophils, 6% bands, 1% lymphocytes. Sodium is 139, potassium 3.7, chloride 100, CO2 is 28, BUN is 30, creatinine 0.82, calcium is 10.2, bilirubin 0.4, AST is 36, ALT is 73, alkaline phosphatase is 170. Serum total protein 6.4, albumin 3.4, globulin 3. ASSESSMENT: 1. Qkt-swtus-vmxc lung cancer with liver metastasis. 2. Dyspnea on exertion and hypoxia secondary to vsp-mlgah-dlrq lung cancer with liver metastasis. 3. Epigastric and right upper quadrant pain secondary to liver metastasis. 4. Weight loss and nutrition. 5. Possible dehydration. DISCUSSION: The patient has been started on long-acting MS Contin with his [place], and his pain is significantly improved. He is getting IV hydration. His aspirin has been held for almost 10 days, and we will plan a liver biopsy to acquire tissue for molecular studies. He is a DNR. We will consult palliative care team, and the patient will need home health set up prior to discharge. Thank you for the consult. Job ID: [id number] [facility]
[2018-11-11] MEDS: Tamsulosin HCl 0.4 MG CAP PO SCH (20:42)
[2018-11-12] MEDS: Morphine IR Tab 15 MG TAB PO PRN (01:45)
[2018-11-12] MEDS: Morphine ER 15 MG TAB PO SCH ×2 (09:23→21:40)
[2018-11-12] MEDS: Lisinopril 20 MG TAB PO SCH (09:23)
[2018-11-12] MEDS: Fenofibrate Nanocrystallized 145 MG TAB PO SCH (09:23)
[2018-11-12] MEDS: Atenolol 25 MG TAB PO SCH (09:23)
[2018-11-12] MEDS: Rosuvastatin 20 MG TAB PO SCH (09:23)
[2018-11-12] MEDS: Finasteride 5 MG TAB PO SCH (09:24)
[2018-11-12] MEDS: guaiFENesin ER 600 MG TAB PO SCH ×2 (09:24→20:33)
[2018-11-12] MEDS: Gabapentin 300 MG CAP PO SCH ×3 (09:24→20:34)
--- NOTE | 2018-11-12 17:26 | PRG ---
DATE OF SERVICE: 11/12/2018 SUBJECTIVE: The patient reports he is feeling a little bit better today. His pain is well managed, but he is trying to cut back on some of the pain medicines because it is causing him to be too sleepy, although he is grateful to get some rest and have the pain well controlled. OBJECTIVE: VITAL SIGNS: Temperature 98.3, pulse 78, respirations 20, and O2 saturation 92% on 4 L nasal cannula. GENERAL APPEARANCE: Age-appropriate male. He is in no distress. He is awake, alert, and oriented. He is little groggy from pain medications. HEART: Regular rate and rhythm. LUNGS: Have scattered rales and rhonchi bilaterally, slightly worse on the right. ABDOMEN: Soft, nontender, and nondistended. Positive bowel sounds. No masses. No organomegaly. EXTREMITIES: No significant edema. IMPRESSION AND PLAN: 1. Metastatic lung cancer with mets to the liver and bone. The patient underwent liver biopsy here to help get molecular studies to determine if there are going to be any potential treatment options for him given his advanced disease. The patient has significant cancer-related pain. He is requiring opioids for that. He seems to be on a good regimen now and his pain appears to be well controlled. 2. Disposition. The patient has met with hospice today. He and his tend to believe that is the direction they want to go, but they want to have the opportunity to discuss this with their family before making a final commitment to that decision. Therefore, we will continue the patient's hospital stay until we can get a definitive disposition. 3. Dehydration, improved. The patient appears to be eating and drinking better. 4. Chronic peripheral vascular disease, stable. Job ID: [id number]
[2018-11-12] MEDS: Tamsulosin HCl 0.4 MG CAP PO SCH (20:32)
[2018-11-12] MEDS: Docusate 100 MG CAP PO SCH (20:33)
[2018-11-12] MEDS ORDERED: Sodium Chloride 0.9% 500 ML IV SCH (20:45)
[2018-11-13] MEDS: Morphine IR Tab 15 MG TAB PO PRN (04:57)
[2018-11-13] MEDS ORDERED: Sodium Chloride 0.45% 500 ML IV SCH (08:30)
[2018-11-13] MEDS: Gabapentin 300 MG CAP PO SCH ×2 (08:37→15:09)
[2018-11-13] MEDS: Fenofibrate Nanocrystallized 145 MG TAB PO SCH (08:40)
[2018-11-13] MEDS: Morphine ER 15 MG TAB PO SCH (08:40)
[2018-11-13] MEDS: Finasteride 5 MG TAB PO SCH (08:40)
[2018-11-13] MEDS: Docusate 100 MG CAP PO SCH (08:40)
[2018-11-13] MEDS: guaiFENesin ER 600 MG TAB PO SCH (08:40)
[2018-11-13] MEDS: Rosuvastatin 20 MG TAB PO SCH (08:40)
[2018-11-13] MEDS ORDERED: Sodium Chloride 0.9% 500 ML IV SCH (08:45)
[2018-11-13 09:01] VITALS: TEMP 97.4
[2018-11-13] MEDS: Atenolol 25 MG TAB PO SCH (09:01)
[2018-11-13] MEDS: Lisinopril 20 MG TAB PO SCH (09:01)
[2018-11-13 09:08] LABS: #Eosinphils 1.5 thou/uL (0.0-0.7); #Lymphocytes 1.1 thou/uL (1.20-3.40); #Monocytes 1.4 thou/uL (0.11-0.59); #Neutrophils 16.5 thou/uL (1.40-6.50); %Basophils 0.2 % (0.0-1.0); %Eosinophils 7.3 % (0.0-10.0); %Lymphocytes 5.3 % (21.0-51.0); %Monocytes 6.8 % (0.0-10.0); %Neutrophils 80.4 % (42.0-75.0); Hemoglobin 10.7 g/dL (14.0-18.0); Mean Corpuscular HGB CONC 32.4 g/dL (32.0-36.0); Mean Corpuscular Hemoglobin 29.3 pg (27.0-31.0); Mean Corpuscular Volume 90.3 fL (78.0-98.0); Mean Platelet Volume 7.8 fL (7.4-10.4); Platelet Count 99 thou/uL (130-400); RBC Distribution Width 12.6 % (11.5-14.5); Red Blood Cell (RBC) Count 3.67 mill/uL (4.70-6.10); White Blood Cell (WBC) Count 20.5 thou/uL (4.8-10.8)
[2018-11-13 09:09] LABS: Anion Gap 15 mmol/L (10-20); BUN (Urea Nitrogen) 68 mg/dL (8.4-25.7); Calc. Creatinine Clearance 46 mL/min (70-130); Calcium 9.2 mg/dL (7.8-10.44); Carbon Dioxide 26 mmol/L (23-31); Chloride 98 mmol/L (98-107); Estimated GFR-MDRD 42; Glucose 118 mg/dL (83-110); Potassium 4.3 mmol/L (3.5-5.1); Sodium 135 mmol/L (136-145)
[2018-11-13 12:11] VITALS: BP 122/60
== END 2018-11-13 17:35 | disposition hospice, inpatient (51) | DRG 181 ==
LOC: T4-A 18:00 → ONC 22:21
PROVIDERS: ADMIT Family Medicine; ATTEND Family Medicine
PROC: 0FB13ZX Excision of Right Lobe Liver, Percutaneous Approach, Diagnostic (ICD-10-PCS; principal; 2018-11-11)
DX: C34.90 Malignant neoplasm of unspecified part of unspecified bronchus or lung (principal); C78.7 Secondary malignant neoplasm of liver and intrahepatic bile duct; I10 Essential (primary) hypertension; I73.9 Peripheral vascular disease, unspecified; Z66 Do not resuscitate; Z51.5 Encounter for palliative care; I25.10 Atherosclerotic heart disease of native coronary artery without angina pectoris; E78.00 Pure hypercholesterolemia, unspecified; E86.0 Dehydration; G89.3 Neoplasm related pain (acute) (chronic); J44.9 Chronic obstructive pulmonary disease, unspecified; F41.9 Anxiety disorder, unspecified; F32.9 Major depressive disorder, single episode, unspecified; Z87.891 Personal history of nicotine dependence; Z90.49 Acquired absence of other specified parts of digestive tract; Z98.61 Coronary angioplasty status
CPT/HCPCS: 36415; 47000; 77012; 80048; 85025; 88307; 88333; 88334; 88341; 88342; 94640; 94760; J2250; J2270; J3010; J7050; J7620